=== PATIENT | male | born 1965 | race Caucasian/White ===

== ENCOUNTER → 2017-01-25 | Outpatient (CLI) | payer BC ==
[~2017-01-25] VITALS: Ht 180.3 cm; Wt 93.3 kg
[2017-01-25 14:55] VITALS: BP 134/94; PULSE 96; Ht 180.3 cm; Wt 93.3 kg
== END | disposition home or self-care (01) ==
LOC: C.NEUR 14:16
PROVIDERS: ATTEND Internal Medicine Pulmonary Disease
DX: R06.83 Snoring (principal); R53.83 Other fatigue; G47.8 Other sleep disorders

== ENCOUNTER → 2017-01-31 | Outpatient (CLI) | payer BC ==
--- NOTE | 2017-02-01 05:06 | PAP/PSG TECHNICIAN REPORT ---
[facility] Applications Engineer Manufacturing Polysomnogram Report Study name: None Report date: 02/01/2017 Study date: 01/31/2017 Referring Physician: Khai Mcclain M.D. Name: LUZ MARCIAL Interpreting Physician: Khai Mcclain M.D. Date of : 1965 Applications Engineer Manufacturing: Luciana Reyes RPS. Sex: Male Age: 51 StudyType: PSG Weight: 205 lbs Height: 51 years, Height 5' 11" Neck Circum: 16 inches BMI: 28.59 Medications: Omeprazole 20 mg Patient History 51 yr. old male here for a diagnostic sleep study. Patient complains of never feeling rested, moves constantly in his sleep, loud snoring and witnessed apneas. ESS 12/09. Parameters Monitored NPSG: E1-M2, E2-M1, Fp1-M2, Fp2-M1, F3-M2, F4-M2, F4-M1, C3-M2, C4-M2, C4-M1, O1-M2, O2-M2, O2-M1, T3-M2, T4-M1, P3-M2, P4-M1, CHIN1, CHIN2, HR, EKG, Legs, PFLOW, SNOR, FLOW, CFLOW, Tidal Volume, THOR, ABDO, SpO2, PLTH, CPRESS, ETCO2 Wave, ETCO2, pH Sleep Architecture Sleep Stages Time at Lights Off 8:15:40 PM STAGES Time (min.) TST (%) Time at Lights On 4:58:10 AM Wake 67.0 -- Total Recording Time (TRT) 522.00 min. N1 46.0 10 Total Sleep Period (TSP) 507.5 min. N2 289.5 64 Total Sleep Time (TST) 455.0min. N3 17.0 4 Awake Time 67.0 min. REM 102.5 23 Wake after Sleep Onset 61.0 min. Sleep Efficiency (SE) 87 % Sleep Onset Latency (TRACEE) 6.5 min. Number of Stage 1 Shifts None Awakenings 34 Stage Changes 154 Number of REM periods 13 REM 102.5 23 REM Latency 111.5 min. NREM 352.5 77 Body Position Analysis Supine Right Left Side Prone Vertical Total Sleep Time (min.) 296.4 126.5 76.0 202.50 0.0 0.7 Total Sleep Time (%) 55% 28% 17% 45 0% N/A% Total Sleep Time REM (min.) 29.5 46.0 27.0 None 0.0 0.0 Total Sleep Time NREM (min.) 223.0 80.5 49.0 None 0.0 0.0 Intermittent Wake (min.) 43.9 21.1 1.2 None 0.0 0.7 Total Sleep Period (%) 57% None None None None None Arousals Myoclonus (PLM) * Events Count Index Events Count Index Spontaneous 12 2 Events Awake (PLMW) 49 43.9 Respiratory 18 2.8 Events Asleep w/ Arousal (PLMA) 11 1.5 PLM 11 1 Events Asleep w/o Arousal (PLMS) 61 8.0 Snoring 25 3 Total Asleep 72 9.5 Total 65 9 Total 121 14 Respiratory Analysis * CA OA MA CH H RERA Total Count 2 3 0 0 59 15 64 Index 0.3 0.4 0.0 0 7.8 2 10.4 Mean Duration 14.0 17.7 0.0 0.00 19.6 23.7 20.2 Longest Duration 16.4 20.7 0.0 0.00 0.0 31.9 50.1 Respiratory Event Summary Total Supine ~Supine Right Left Prone REM NREM Apneas Count 5 5 0 0 0 N/A 2 3 Index 0.7 1 0 0.0 0.0 N/A 1 1 Hypopneas (4% Desat) Count 59 51 8 8 0 N/A 5 54 Index 7.8 12.1 2 3.8 0.0 N/A 2.9 9.2 Apneas & All Hypopneas Count 64 56 8 8 0 N/A 7 57 Index 8.4 13 2 4 0 N/A 4.1 9.7 Respiratory Events (Big Data Admin+All Hyp+RERA) Count 64 68 11 11 0 N/A 7 57 Index 10.4 16 3 5.2 0.0 N/A 6.4 11.6 Respiratory Related Arousal Count 18 68 3 3 0 N/A 3 18 Index 2.8 4 1 1 0 N/A 2 3 Snoring Analysis Supine Right Left Prone REM NREM Total Snore duration 35.0 min Snores count 633 526 48 N/A 182 1,025 1,207 Snore mean duration 1.7 Sec Snores index 150 249 38 N/A 106.5 174.5 159.2 TST with snoring (%) 7.7% Desaturation Event Summary: Minimum %SpO2 Event Count Mean/Min/Max Duration(sec.) Desaturation Index % Time In Bed > 90 67 21.6 / 5.5 / 60.0 8.7 89.2 86 - 90 8 11.7 / 5.5 / 14.3 8.6 10.8 81 - 85 0 N/A 0.0 0.0 76 - 80 0 N/A 0.0 0.0 71 - 75 0 N/A 0.0 0.0 66 - 70 0 N/A 0.0 0.0 61 - 65 0 N/A 0.0 0.0 56 - 60 0 N/A 0.0 0.0 51 - 55 0 N/A 0.0 0.0 < 50 0 N/A 0.0 0.0 Total REM NREM Awake <50% 0.0 min. 0.0 min. 0.0 min. 0.0 min. 51 - 60% 0.0 min. 0.0 min. 0.0 min. 0.0 min. 61 - 70% 0.0 min. 0.0 min. 0.0 min. 0.0 min. 71 - 80% 0.0 min. 0.0 min. 0.0 min. 0.0 min. 81 - 90% 56.0 min. 0.8 min. 49.5 min. 5.7 min. 91 - 100% 462.6 min. 101.7 min. 303.0 min. 57.9 min. Average 93 94 92 93 Minimum SpO2 85 90 88 85 Desaturation Event Index 7.7 3.5 8.5 10.7 # Desat. Events below 89% 16 N/A 15 1 Time(%) with Saturation below 89% 0.3 0.0 0.2 0.1 Time(min.) with Saturation below 89% 1.5 0.0 1.2 0.3 Time (mins) REM (mins) NREM (mins) % of TST SpO2 Below 90% 35 2 N33 2.8 SpO2 Below 88% 4 0 0 0 Heart Rate Analysis Min (bpm) Max (bpm) Average (bpm) Awake 56 92 71 NREM 53 90 70 REM 48 87 65 Overall 48 90 69 Supplemental O2 Values Minimum O2 level: None Value Start Time End Time Applications Engineer Manufacturing Comments Mr. Marcial slept in the right, left, and supine positions. No cardiac arrhythmia. PLMs noted. No bruxism noted. Snoring was noted and scored as a 4 on a scale of 0 through 5. (0=no snoring, 5=snoring loud enough to be heard through a closed door or down the [address] way) Mr. Marcial did not wake to use the restroom during the night. Mr. Marcial stated, that was a normal night. The final report will be interpreted and signed by a sleep physician. The completed physician report will then be placed in the patient medical record. Therapy (cm H2O) 0 TIB (min.) 522.0 TST (min.) 455.0 Sleep Onset (min.) 6.5 REM Onset From Sleep (min.) 111.5 Sleep Efficiency % 87 Wakefulness (%) 13 Wakefulness (min.) 67.0 NREM 1 (%) 10 NREM 1 (min.) 46.0 NREM 2 (%) 64 NREM 2 (min.) 289.5 NREM 3 (%) 4 NREM 3 (min.) 17.0 REM (%) 23 REM (min.) 102.5 # Arousals 65 Arousal Index 9 # Snore 1,207 Snore Index 159.2 AHI 8.4 AHI Supine 13 AHI Non-Supine 2 NREM AHI 9.7 REM AHI 4.1 RDI 10.4 # Obstructive Apnea 3 # Central Apnea 2 # Mixed Apnea 0 # Hypopneas 59 RERAs 15 Total Respiratory Events 80 Time Below SpO2 89% (min.) 1.2 Mean NREM SpO2 (%) 92 Mean REM SpO2 (%) 94 Mean Sleep SpO2 (%) 93 Min NREM SpO2 (%) 88 Min REM SpO2 (%) 90 Position Supine (min.) 296.4 Position Non-supine (min.) 202.5 LM Index Sleep 9.5 LM Index NREM 7.0 LM Index REM 18.1 Mean Heart Rate (bpm) 69 Min Heart Rate (bpm) 48
--- NOTE | 2017-02-04 16:10 | POLYSOMNOGRAPH REPORT ---
CLINICAL DATA: A 51-year-old male with BMI of 28.6 referred by myself and Dr. éCsar Zhao for evaluation of possible sleep apnea. He has loud snoring, daytime fatigue, witnessed apneas, and frequent movements in bed. SLEEP ARCHITECTURE: Total sleep period was 507.5 minutes. Total sleep time was 455 minutes divided between 352.5 minutes of non-REM sleep and 102.5 minutes of REM sleep. Sleep onset latency was 6.5 minutes. REM latency was 111.5 minutes. Sleep efficiency was 87%. Wake after sleep onset was 61 minutes. Sleep consisted of stage N1 10%, stage N2 64%, stage N3 4%, and REM 23%. AROUSAL DATA: A 65 arousals recorded for an index of 9 per hour. PLM DATA: 72 limb movements during sleep were noted for an index of 9.5 per hour with arousal index of 1.5 per hour. RESPIRATORY DATA: Mild sleep apnea was documented. The AHI was 8.4. There were 2 central and 3 obstructive apneic episodes. The longest duration of apnea was 28.7 seconds. There were 59 hypopneic episodes with a mean duration of 19.6 seconds. The RDI was 10.4. There were 15 RERAs. the longest RERA was 31.9 seconds. OXIMETRY DATA: Very mild nocturnal hypoxemia was seen. Oxygen arnoldo was 88%. Mean saturation was 93%. EKG: Heart rates ranged from 53-90 beats per minute. No arrhythmias were noted. DOOR MANAGER'S COMMENTS: The patient slept in the right, left, and supine positions. Snoring was severe, rated 4 on a scale of 1-5. IMPRESSION: Mild sleep apnea/hypopnea with an AHI of 8.4 and an RDI of 10.4. RECOMMENDATIONS: The patient would benefit from use of an oral appliance, use of auto CPAP, or a repeat sleep study with CPAP. Clinical correlation is needed. JAMEL
== END | disposition home or self-care (01) ==
LOC: C.NEUR 20:00
PROVIDERS: ATTEND Internal Medicine Pulmonary Disease
DX: G47.30 Sleep apnea, unspecified (principal)

== ENCOUNTER → 2017-05-10 | Outpatient (CLI) | payer OTHER ==
[~2017-05-10] VITALS: Ht 180.3 cm; Wt 95.3 kg
[2017-05-10 12:40] VITALS: BP 133/88; PULSE 94; Ht 180.3 cm; Wt 95.3 kg
== END | disposition home or self-care (01) ==
LOC: C.NEUR 12:20
PROVIDERS: ATTEND Physician Assistant Medical
DX: G47.30 Sleep apnea, unspecified (principal); R68.2 Dry mouth, unspecified

== ENCOUNTER 2021-01-12 11:21 | Observation (INO) ==
[2021-01-12] MEDS ORDERED: HYDROmorphone INJ 1 MG/ML SYRINGE IM ONE (13:13)
[2021-01-12] MEDS ORDERED: dexAMETHasone**PF** 10 MG/ML VIAL IM ONE (13:15)
--- NOTE | 2021-01-12 13:49 | Emergency Department Note ---
History of Present Illness General Chief complaint: Back Injury/Pain Stated complaint: SEVERE BACK PAIN History of Present Illness Maximum Pain Intensity: 10 Feroz Marcial is a 55 year old male with history including but not limited to HTN, DLD, GERD, sleep apnea, and chronic lumbar back pain s/p previous injections who presents to the Emergency Department for evaluation of severe ceasar n to his lower back radiating down his right buttock, into his right groin and anterolateral right leg which has become worse over the past 11 days. At the time of onset, the patient states that he was carrying something heavy when he "tweaked" his back, he suddenly developed the severe pain which brought him to his knees. He attempted to visit his chiropractor x 2 for an adjustment without relief. He then visited his PCP and had a lumbar X-ray and MRI L spine on 01/08/21 which showed mild multilevel degenerative changes of the lumbar spine, most significant for a right foraminal disc protrusion at L1-2 resulting in mild right foraminal stenosis. The patient states that he did complete a 5 day course of prednisone and has also been taking Tramadol and Baclofen as prescribed by his PCP without relief of his symptoms. He states that he has now developed even worsening pain and now has numbness to his right groin radiating down his anterolateral leg into his toes. He also states that he has been having difficulty starting his stream of urine, but once he starts to urinate he is unable to control it. He denies loss of continence of his bowel and has continued to have regular bowel movements. Currently, the patient rates his pain as a 10/10 and is unable to find a comfortable position secondary to his pain. His symptoms become much worse when he bears weight on his right leg and has been having difficulty ambulating due to this. He denies specific weakness to his right leg or other extremities and denies suffering any falls. He also denies recent fevers/chills, lightheadedness, dizziness, chest pain, cough, shortness of breath, abdominal pain, nausea, vomiting, diarrhea, increased urgency of urination or dysuria. The patient is requesting a consult with Dr. Messer of Orthopedic Spine surgery and is also requesting admission to the hospital due to his intractable back pain with associated neurological symptoms until he is able to be seen by Spine. Home Medications Medication Instructions Recorded Confirmed Type omeprazole 20 mg tablet,delayed 20 mg PO DAILY 12/06/18 09/27/21 History release cetirizine 10 mg tablet (Zyrtec) 10 mg PO QAM PRN 09/05/19 01/12/21 History baclofen 20 mg tablet 20 mg PO BID PRN 01/12/21 01/12/21 History Allergies Allergy/AdvReac Type Severity Reaction Status Date / Time codeine AdvReac Unknown gi upsets Verified 09/13/19 12:49 morphine AdvReac Unknown gi upsets Verified 09/13/19 12:49 Ookiiyl-Cpj-Mvc Reductase AdvReac Unknown Muscle Pain Verified 09/13/19 12:49 Inhibitor Past Med/Surg History Medical History Terrazas esophagus Chronic back pain LUMBAR GERD (gastroesophageal reflux disease) High cholesterol Hypertension Rectal bleeding OCCASIONALLY> REASON FOR PROCEDURE Sleep apnea CPAP Surgical History History of esophagogastroduodenoscopy (EGD) Hx of arthroscopic knee surgery MULTIPLE BILAT Hx of hand surgery INDEX FINGER> LEFT HAND Hx of hernia repair X2> INGUINAL Hx of shoulder surgery LEFT Hx of toe surgery LEFT FOOT Hx of vasectomy Family History Father Hypertension Social History (Updated 01/12/21 @ 15:54 by RE De) Smoking Status: Never smoker Tobacco Type: Smokeless Tobacco (Dip or Chew) Second Hand Exposure: No; Do You Dip or Chew Tobacco: Yes; Tobacco Cessation Education Requested by Patient: No Hx Alcohol Use: Yes Alcohol type: beer and hard liquor Hx Substance Use: No Preferred Language: Luxembourgish Communication Ability: Effective Automatic Winder Operator Required: No Beliefs That Will Affect Care: None Current Living Situation: Spouse Other Information That Helps Us Care for You: No Feels Safe at Home: Yes Safety Concerns: Feels Safe At This Time Assistive Devices: Walker Review of Systems A total of 10 systems reviewed and were otherwise negative Physical Exam Vital Signs Vital Signs - 24 hr 01/12/21 12:21 Temperature 36.7 C Temperature Source Temporal Artery Scan Pulse Rate 83 Respiratory Rate 16 Blood Pressure 126/65 Blood Pressure Mean 85 Pulse Oximetry 98 Sepsis Recent Fever Within 48 Hours No Sepsis New/Unexplained Change in Mental Status No Sepsis Action Taken by Nursing No Action Required General: The patient is well-developed, well-nourished, writhing around in bed, holding his right lower back HEENT: Face and ears are flushed, scalp is normocephalic/atraumatic, PERRL, EOMI, mucous membranes moist, oropharynx clear Neck: Trachea midline, no meningismus, no mid-line cervical tenderness Resp: Good inspiratory effort on room air, lung sounds clear bilaterally CV: Regular rate and rhythm, peripheral pulses palpated Back: No midline tenderness to the thoracic spine, tender to palpation over the lumbar spine radiating to the right lower back and buttocks, no obvious step- offs or deformities : Perceived numbness to the right groin, no penile or scrotal pain Abd: Soft, non-distended, non-tender to palpation without rebound, guarding or rigidity, no peritoneal signs MSK: No obvious long bone deformities. Pain and perceived numbness radiating down the right anterior and lateral thigh but non-tender to palpation. Full range of motion of the RLE without pain or difficulty, strength 5/5, d/p pulse and sensation to light/deep palpation intact on exam. Moving BUE and LLE without apparent pain or difficulty with strength 5/5 throughout these extremities as well. Neuro: Awake, alert and oriented x 3, interacting and answering questions appropriately Course Administered Medications Hydromorphone HCl (Hydromorphone Inj 0.5 Mg/0.5 Ml Syr) 0.5 mg IV Q6H PRN PRN Reason: Pain Stop: 01/26/21 16:46 Last Admin: 01/12/21 17:21 Dose: 0.5 mg Documented by: [id number] Oxycodone HCl (Oxycodone Hcl Ir 5 Mg Tab (Immediate Release)) 5 mg PO Q6H PRN PRN Reason: Pain Stop: 01/26/21 16:46 Last Admin: 01/12/21 19:33 Dose: 5 mg Documented by: [id number] Discontinued Medications Dexamethasone Sodium Phosphate (DexamethasonePf 10 Mg/Ml Vial) 10 mg IM NOW ONE Stop: 01/12/21 13:16 Last Admin: 01/12/21 13:22 Dose: 10 mg Documented by: [id number] Hydromorphone HCl (Hydromorphone Inj 1 Mg/Ml Syringe) 1 mg IM ONCE ONE Stop: 01/12/21 13:14 Last Admin: 01/12/21 13:22 Dose: 1 mg Documented by: [id number] Ondansetron HCl (Ondansetron Inj 2 Mg/Ml 2 Ml Vial) 4 mg IV ONE ONE Stop: 01/12/21 15:06 Last Admin: 01/12/21 15:20 Dose: 4 mg Documented by: [id number] Oxycodone HCl (Oxycodone Hcl Ir 5 Mg Tab (Immediate Release)) 5 mg PO ONE ONE Stop: 01/12/21 15:06 Last Admin: 01/12/21 15:20 Dose: 5 mg Documented by: [id number] Medical Decision Making Differential Diagnosis Differential considered includes cauda equina syndrome, conus medullaris, spinal cord compression syndrome, peripheral nerve compression, fractures or subluxations, intra-abdominal pathology such as abdominal aortic aneurysm or ki dney stones, muscle strain, transverse myelitis, spinal cord injury. Laboratory Data Result diagrams: 01/12/21 14:28 01/12/21 14:28 Lab Results 01/12/21 01/12/21 Range/Units 14:05 14:05 COVID-19 Eval Order Covid19 at [facility] SARS-CoV-2 (PCR) NEGATIVE (Negative) MDM Narrative Physical exam and history were performed. Nursing notes, EMR, and medication list were personally reviewed. Patient presents to the emergency department for evaluation of severe pain to his lower back radiating into his right buttocks, groin and right anterolateral thigh which has been worsening since he "tweaked" it while carrying something heavy 11 days prior to arrival. He has also since developed numbness in his right groin radiating down his right leg to his toes and also states that he has been having difficulty starting his flow of urine with loss of control of the stream once he starts to urinate. After the initial injury, the patient saw his chiropractor for an adjustment but did not have relief after the procedure. He is also followed up with his PCP and had x-rays of his lumbar spine as well as an MRI last week which showed right foraminal disc protrusion at L1-L2 resulting in mild foraminal stenosis. He completed a 5-day course of prednisone and has been taking tramadol and baclofen without relief of his symptoms. Due to his worsening pain and development of numbness/urinary symptoms as stated he presented to the emergency department for further evaluation today. I discussed with the patient and his at bedside that the findings of right foraminal disc protrusion at L1-L2 resulting in mild foraminal stenosis on the MRI of his L-spine are consistent with his symptoms today and he denies suffering additional injuries or falls since that time. I do not feel any additional imaging is necessary at this time. It seems that he has failed outpatient management after completing a 5-day course of steroids and taking pain medicine and muscle relaxants without any relief. The patient stated that he could not go through another night in severe pain as he did last night and is requesting consultation with Dr. Messer of orthopedic spine. IV access was established and the patient was given Dilaudid 1 mg and Decadron 10 mg which she did state how to take the edge off of his severe pain. CBC and BMP were also obtained and were reviewed by me. He has mild leukocytosis at 12.07, no other significant findings. I did attempt to call Dr. Messer as the patient requested, however he was not on-call today and did not answer the phone. I offered to consult the [facility] spine surgeon, however the patient stated that he only wanted to see Dr. Messer. In the meantime, he and his were requesting admission to the hospital for continued pain control due to his fa iled outpatient treatment. Ana Lance PA-C of the [facility] team was contacted and agreed to evaluate the patient for likely observation. This was also discussed with my attending, Dr. Joel. The patient and his verbalized their understanding and agreement with this treatment plan. The chart was completed utilizing [employer] Speech Voice Recognition Software. Grammatical errors, random word insertions, pronoun errors, and incomplete sentences are an occasional consequence of this system due to software limitations, ambient noise, and hardware issues. Any formal questions or concerns about the content, text, or information contained within the body of this dictation should be directly addressed to the provider for clarification. Impression & Plan Intractable back pain, Foraminal stenosis of lumbar region, Protrusion of intervertebral disc Discharge Plan Visit Data Chief Complaint: Back Injury/Pain Stated Complaint: SEVERE BACK PAIN ED Provider: Hussein Joel ED Midlevel Provider: Natalee Wells Discharge Problem: Intractable back pain, Foraminal stenosis of lumbar region, Protrusion of intervertebral disc Patient Disposition: Admitted As Inpatient Discharge Instructions Interventions: ED Discharge Assessment Last Done: 01/12/21 16:31
[2021-01-12 14:35] LABS: Basophils # (auto) 0.02 K/uL (0-0.2); Basophils % (auto) 0.2 %; Eosinophils # (auto) 0.16 K/uL (0-0.5); Eosinophils % (auto) 1.3 %; Hematocrit (blood only) 46.7 % (42-52); Hemoglobin 16.7 g/dL (14.0-18.0); Immature Granulocytes # (auto) 0.05 K/uL (0.00-0.02); Immature Granulocytes % (auto) 0.4 %; Lymphocytes # (auto) 1.85 K/uL (1.2-3.4); Lymphocytes % (auto) 15.3 %; Mean Corpuscular Hemoglobin 30.9 pg (25-34); Mean Corpuscular Hgb Conc 35.8 g/dL (32-36); Mean Corpuscular Volume 86.3 fL (80-100); Mean Platelet Volume 10.5 fL (7.4-10.4); Monocytes # (auto) 0.93 K/uL (0.11-0.59); Monocytes % (auto) 7.7 %; Neutrophils # (auto) 9.06 K/uL (1.4-6.5); Neutrophils % (auto) 75.1 %; Platelet Count 220 K/uL (130-400); RDW Coefficient of Variation 12.9 % (11.5-14.5); RDW Standard Deviation 40.7 fL (36.4-46.3); Red Blood Count 5.41 M/uL (4.7-6.1); White Blood Count 12.07 K/uL (4.8-10.8)
[2021-01-12 14:55] LABS: Albumin Level 3.4 gm/dl (3.4-5.0); BUN Creatinine Ratio 17.8 (10-20); Calcium 8.7 mg/dl (8.5-10.1); Est GFR (African American) 86.5 ml/min; Est GFR (Non-African American) 74.6 ml/min; Potassium 3.7 mmol/L (3.5-5.1)
[2021-01-12 14:58] LABS: Bilirubin,Total 0.4 mg/dl (0.2-1); Globulin 3.3 gm/dl (2.5-4.0); Total Protein 6.7 gm/dl (6.4-8.2)
[2021-01-12] MEDS ORDERED: oxyCODONE HCL IR 5 MG TAB (IMMEDIATE RELEASE) PO ONE (15:05)
[2021-01-12] MEDS ORDERED: ONDANSETRON INJ 2 MG/ML 2 ML VIAL IV ONE (15:05)
--- NOTE | 2021-01-12 15:58 | History & Physical Report ---
Date of Service January 12, 2021 Assessment & Plan (1) Protrusion of lumbar intervertebral disc: (2) Intractable back pain: Plan: -Admit to [facility] -Patient presenting from home with reports of worsening back pain, RLE numbness and weakness x 11 days -Outpatient MRI showed right foraminal disc protrusion L1-L2 resulting in mild right foraminal stenosis -Patient completed a course of prednisone and tramadol as an outpatient without relief -In the ED, patient received IV Dilaudid and IV Decadron with improvement in symptoms however is reluctant to go home -Spine Ortho consult, case discussed with Dr. Messer -Continue conservative management with IV steroids (additional Decadron 10 mg to be given tomorrow morning per Dr. Messer), pain control with oxycodone and Dilaudid for breakthrough pain -N.p.o. after midnight for possible procedure tomorrow (3) Terrazas esophagus: Plan: -Continue PPI (4) Sleep apnea: Plan: -CPAP as per home settings (5) DVT prophylaxis: Plan: -SCDs History of Present Illness Chief Complaint: Back pain Primary Care Provider: César Zhao MD 55-year-old male with PMH DEBBIE on CPAP, Terrazas's esophagus, and other problems listed below who presents the ED for evaluation of intractable back pain. Patient reports that 11 days ago, he developed a low right-sided back pain. He reports the pain came on suddenly while walking. Pain has been progressively getting worse. Pain is located in the right lower back and radiates into the right buttock. Patient also has associated numbness extending into the right anterior thigh and down the lateral aspect of the right leg to the toes. Reports that right leg feels weak when he is walking. He denies urinary incontinence and retention however notes that urine stream is decreased. Denies bowel dysfunction. As an outpatient, was seen by his PCP and MRI was ordered that showed a right foraminal disc protrusion L1-L2. He completed course of prednisone without any improvement in his symptoms. He was also taking tramadol and baclofen without relief. Patient denies fevers and chills. No chest pain or shortness of breath. Denies abdominal pain, nausea, vomiting, diarrhea. No dysuria or hematuria. In the ED, patient received IV dexamethasone 10 mg and IV Dilaudid 1 mg. Pain is improved however patient is reluctant to go home. Patient is hemodynamic stable. Labs are unremarkable. Allergies Allergy/AdvReac Type Severity Reaction Status Date / Time codeine AdvReac Unknown gi upsets Verified 09/13/19 12:49 morphine AdvReac Unknown gi upsets Verified 09/13/19 12:49 [id number] Reductase AdvReac Unknown Muscle Pain Verified 09/13/19 12:49 Inhibitor Home Medications Medication Instructions Recorded Confirmed Type omeprazole 20 mg tablet,delayed 20 mg PO DAILY 03/23/18 01/12/21 History release cetirizine 10 mg tablet (Zyrtec) 10 mg PO QAM PRN 09/05/19 01/12/21 History baclofen 20 mg tablet 20 mg PO BID PRN 01/12/21 01/12/21 History oxycodone 5 mg tablet 5 mg PO Q6H PRN #20 tab 01/14/21 Rx tramadol 50 mg tablet 50 mg PO Q6H PRN #20 tab 01/14/21 Rx Past Med/Surg History Medical History Terrazas esophagus Chronic back pain LUMBAR GERD (gastroesophageal reflux disease) High cholesterol Hypertension Rectal bleeding OCCASIONALLY> REASON FOR PROCEDURE Sleep apnea CPAP Surgical History History of esophagogastroduodenoscopy (EGD) Hx of arthroscopic knee surgery MULTIPLE BILAT Hx of hand surgery INDEX FINGER> LEFT HAND Hx of hernia repair X2> INGUINAL Hx of shoulder surgery LEFT Hx of toe surgery LEFT FOOT Hx of vasectomy Family History Father Hypertension Social History (Updated 01/12/21 @ 15:54 by RE De) Smoking Status: Never smoker Tobacco Type: Smokeless Tobacco (Dip or Chew) Second Hand Exposure: No; Do You Dip or Chew Tobacco: Yes; Tobacco Cessation Education Requested by Patient: No Hx Alcohol Use: Yes Alcohol type: beer and hard liquor Hx Substance Use: No Preferred Language: Kiswahili Communication Ability: Effective 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 Beliefs That Will Affect Care: None marital status: Current Living Situation: Spouse Other Information That Helps Us Care for You: No Feels Safe at Home: Yes Safety Concerns: Feels Safe At This Time Assistive Devices: Walker Review of Systems Review of Systems: ROS per HPI, all other systems reviewed and negative Physical Exam Constitutional: WD/WN, vitals as above Eyes: PERRL, conjunctivae normal, anicteric sclerae ENMT: external ear and nose normal, oropharynx normal Respiratory: normal respiratory effort, lungs clear to auscultation Cardiovascular: Rate/Rhythm: regular rate and regular rhythm Vessels: normal peripheral pulses Extremities: no edema Gastrointestinal (Abdomen): normal bowel sounds, soft, nontender, no hepatosplenomegaly Musculoskeletal: no cyanosis or clubbing, extremities motor strength 5/5 Right-sided lumbar paraspinal tenderness Skin: no rashes, warm and dry Neurologic: PERRL, EOMI, accommodation nl, no face palsy, no dysarthria Psychiatric: A+Ox3, euthymic affect Results & Data Results & Data ([facility]) Vital Signs (Past 12 Hours) Vital Signs Temp Pulse Pulse Resp BP BP Pulse Ox 01/12/21 14:24 69 18 138/86 99 01/12/21 12:21 36.7 C 83 16 126/65 98 Laboratory Results Short CBC 01/12/21 Range/Units 14:28 WBC 12.07 H (4.8-10.8) K/uL Hgb 16.7 (14.0-18.0) g/dL Hct 46.7 (42-52) % Plt Count 220 (130-400) K/uL BMP 01/12/21 14:28 Sodium 136 Potassium 3.7 Chloride 105 Carbon Dioxide 23 BUN 20 H Creatinine 1.12 Glucose 114 H Calcium 8.7 Liver Function 01/12/21 Range/Units 14:28 Total Bilirubin 0.4 (0.2-1) mg/dl AST 22 (15-37) U/L ALT 73 (12-78) U/L Alkaline Phosphatase 96 (45-117) U/L Albumin 3.4 (3.4-5.0) gm/dl Code Status & VTE Plan VTE Prophylaxis Plan VTE Prophylaxis will be ordered: Yes Supervising Physician Co-Signing Physician Notes Pt was seen and examined. Agreed with Rosi GRIMALDO exam, assessment and plan. 55-year-old male with PMH DEBBIE on CPAP, Terrazas's esophagus presents the ED for evaluation of intractable back pain. Pt said that he has been having low right- sided back pain for about 11 days. He said that pain worsening with walking. Denies any bladder and bowel loss. Outpatient MRI was ordered that showed a right foraminal disc protrusion L1-L2. He completed course of prednisone without any improvement in his symptoms. in the ED, patient received IV dexamethasone 10 mg and IV Dilaudid 1 mg with provided some relief. Will continue pain control and decadron. Will consult ortho. Fall precaution. Will make NPO after midnight. Will continue monitor closely. MD Linda
[2021-01-12] MEDS ORDERED: ONDANSETRON INJ 2 MG/ML 2 ML VIAL IV PRN (16:47)
[2021-01-12] MEDS ORDERED: ACETAMINOPHEN 325 MG TAB PO PRN (16:47)
[2021-01-12] MEDS: HYDROmorphone INJ 0.5 MG/0.5 ML SYR IV PRN (17:21)
[2021-01-12] MEDS: oxyCODONE HCL IR 5 MG TAB (IMMEDIATE RELEASE) PO PRN (19:33)
[2021-01-13] MEDS: HYDROmorphone INJ 0.5 MG/0.5 ML SYR IV PRN ×2 (00:50→09:35)
[2021-01-13] MEDS: oxyCODONE HCL IR 5 MG TAB (IMMEDIATE RELEASE) PO PRN (05:54)
[2021-01-13 07:02] LABS: BUN Creatinine Ratio 18.7 (10-20); Est GFR (African American) 80.3 ml/min; Est GFR (Non-African American) 69.3 ml/min; Potassium 4.5 mmol/L (3.5-5.1)
[2021-01-13 07:08] LABS: Hematocrit (blood only) 50.2 % (42-52); Mean Corpuscular Hemoglobin 30.7 pg (25-34); Mean Corpuscular Hgb Conc 33.9 g/dL (32-36); Mean Corpuscular Volume 90.8 fL (80-100); Mean Platelet Volume 10.7 fL (7.4-10.4); Platelet Count 253 K/uL (130-400); RDW Coefficient of Variation 13.2 % (11.5-14.5); RDW Standard Deviation 43.8 fL (36.4-46.3); Red Blood Count 5.53 M/uL (4.7-6.1); White Blood Count 14.37 K/uL (4.8-10.8)
--- NOTE | 2021-01-13 07:58 | Orthopedic Consultation ---
Date of Consultation January 13, 2021 Assessment & Plan (1) Protrusion of intervertebral disc: Assessment Far lateral disc herniation L1-L2 on the right. Plan at this time in light of his progressive neurologic deficit, severe pain and inability to ambulate and recommending emergent far lateral discectomy L1-L2 on the right. Risk benefits pros cons and alternatives were outlined in detail. History of Present Illness Reason for Consultation: Severe right leg pain with weakness and numbness Attending Physician: Brandyn Mckeon MD History of Present Illness This is a 55-year-old male who presents with sudden onset of right flank pain rating into the right groin and anterior thigh right thigh. He denies any specific trauma fall or event. Is been incapacity in nature. Is undergone prior care provider a course of oral steroids and various medications without resolution. He presents to the emergency room yesterday secondary to severe unremitting pain. He does affect his ability to ambulate secondary to weakness. Is been unable to sleep secondary to pain. He has not been able to work. Left lower extremity is asymptomatic. Allergies Allergy/AdvReac Type Severity Reaction Status Date / Time codeine AdvReac Unknown gi upsets Verified 09/13/19 12:49 morphine AdvReac Unknown gi upsets Verified 09/13/19 12:49 [id number]-[id number]-Voo Reductase AdvReac Unknown Muscle Pain Verified 09/13/19 12:49 Inhibitor Home Medications Medication Instructions Recorded Confirmed Type omeprazole 20 mg tablet,delayed 20 mg PO DAILY 03/23/18 01/12/21 History release cetirizine 10 mg tablet (Zyrtec) 10 mg PO QAM PRN 09/05/19 01/12/21 History baclofen 20 mg tablet 20 mg PO BID PRN 01/12/21 01/12/21 History Patient History Medical History Terrazas esophagus Chronic back pain LUMBAR GERD (gastroesophageal reflux disease) High cholesterol Hypertension Rectal bleeding OCCASIONALLY> REASON FOR PROCEDURE Sleep apnea CPAP Surgical History History of esophagogastroduodenoscopy (EGD) Hx of arthroscopic knee surgery MULTIPLE BILAT Hx of hand surgery INDEX FINGER> LEFT HAND Hx of hernia repair X2> INGUINAL Hx of shoulder surgery LEFT Hx of toe surgery LEFT FOOT Hx of vasectomy Family History Father Hypertension Social History (Updated 01/12/21 @ 15:54 by RE De) Smoking Status: Never smoker Tobacco Type: Smokeless Tobacco (Dip or Chew) Second Hand Exposure: No; Do You Dip or Chew Tobacco: Yes; Tobacco Cessation Education Requested by Patient: No Hx Alcohol Use: Yes Alcohol type: beer and hard liquor Hx Substance Use: No Preferred Language: Serbian Communication Ability: Effective 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 He does exhibits a 4-/5 right hip flexor and a 3+/5 right quadricep compared to 5/5 on the left. He is a 5/5 bilaterally plantar flexion dorsiflexion extensor pollicis longus. There is marked sensory deficits to cold and light touch to the right anterior thigh and groin compared to the left. Deep tendon reflexes are diminished. Results & Data ([facility]) Vital Signs (Past 12 Hours) Vital Signs Temp Pulse Pulse Resp BP Pulse Ox 01/13/21 02:50 70 12 92 01/12/21 22:47 36.7 C 72 16 156/88 H 92 01/12/21 22:33 72 26 H 97
--- NOTE | 2021-01-13 08:15 | Anesthesiology Consultation ---
Date of Service January 13, 2021 Assessment & Plan (1) Encounter for pre-operative examination: Chart Review Chart Review: medical data entry clerk initiated History Surgery Operation Date: 01/13/21 07:00 Proposed Procedures p Right Far Lateral L1-L2 Discectomy - Grant Messer DO Height/Weight Height: 5 ft 11 in Weight: 101.3 kg Allergies Allergy/AdvReac Type Severity Reaction Status Date / Time codeine AdvReac Unknown gi upsets Verified 09/13/19 12:49 morphine AdvReac Unknown gi upsets Verified 09/13/19 12:49 [id number]-[id number] Reductase AdvReac Unknown Muscle Pain Verified 09/13/19 12:49 Inhibitor Medications Home Medications Medication Instructions Recorded Confirmed Last Taken omeprazole 20 mg tablet,delayed 20 mg PO DAILY 03/23/18 01/12/21 09/11/19 release cetirizine 10 mg tablet (Zyrtec) 10 mg PO QAM PRN 09/05/19 01/12/21 09/12/19 baclofen 20 mg tablet 20 mg PO BID PRN 01/12/21 01/12/21 Unknown Active Medications Generic Name Dose Route Start Last Admin Trade Name Freq PRN Reason Stop Dose Admin Hydromorphone HCl 0.5 mg 01/12/21 16:47 01/13/21 00:50 Hydromorphone Inj 0.5 Mg/0.5 Ml Syr IV 01/26/21 16:46 0.5 mg Q6H PRN Administration Pain Oxycodone HCl 5 mg 01/12/21 16:47 01/13/21 05:54 Oxycodone Hcl Ir 5 Mg Tab (Immediate Release) PO 01/26/21 16:46 5 mg Q6H PRN Administration Pain Past Medical History Medical History Terrazas esophagus Chronic back pain LUMBAR GERD (gastroesophageal reflux disease) High cholesterol Hypertension Rectal bleeding OCCASIONALLY> REASON FOR PROCEDURE Sleep apnea CPAP Past Family History Family History Father Hypertension Past Surgical History Surgical History History of esophagogastroduodenoscopy (EGD) Hx of arthroscopic knee surgery MULTIPLE BILAT Hx of hand surgery INDEX FINGER> LEFT HAND Hx of hernia repair X2> INGUINAL Hx of shoulder surgery LEFT Hx of toe surgery LEFT FOOT Hx of vasectomy Social History Smoking Status: Never smoker tobacco type: smokeless tobacco Do You Dip or Chew Tobacco: Yes Hx Alcohol Use: Yes Alcohol type: beer and hard liquor alcohol intake frequency: a few times a week Hx Substance Use: No substance use type: does not use Physical Exam Vital Signs Last Vital Signs Temp 97.9 F 01/13/21 08:02 Pulse 57 L 01/13/21 08:02 Resp 18 01/13/21 08:02 BP 146/78 H 01/13/21 08:02 Pulse Ox 97 01/13/21 08:02 Testing Laboratory Results 01/13/21 05:34 01/13/21 05:34 Laboratory Tests 01/12/21 14:05 SARS-CoV-2 (PCR) NEGATIVE
[2021-01-13] MEDS ORDERED: dexAMETHasone 10 MG in SYRINGE 0 ML IV SCH (09:00)
[2021-01-13] MEDS: PANTOprazole 40 MG TAB PO SCH (12:34)
[2021-01-13] MEDS ORDERED: MIDAZOLAM HCL 1 MG/ML 2ML VIAL ONE (13:18)
[2021-01-13] MEDS ORDERED: fentaNYL citrate 100 MCG/2 ML VIAL ONE (13:18)
[2021-01-13] MEDS ORDERED: ONDANSETRON INJ 2 MG/ML 2 ML VIAL IV PRN ×2 (13:34→17:21)
[2021-01-13] MEDS ORDERED: GLYCOPYRROLATE 0.2 MG/ML VIAL ONE (13:34)
[2021-01-13] MEDS ORDERED: PROPOFOL IV EMULSION 10 MG/ML 20 ML VIAL IV ONE (13:34)
[2021-01-13] MEDS ORDERED: ePHEDrine sulfate 50 MG/ML AMP IV PRN (13:34)
[2021-01-13] MEDS ORDERED: LIDOCAINE 2% 2 ML VIAL/AMP(20MG/ML) INFIL ONE (13:34)
[2021-01-13] MEDS ORDERED: LARYING-O-JET KIT (LTA) ONE (13:34)
[2021-01-13] MEDS ORDERED: ATROPINE SULFATE 0.1 MG/ML 10ML SYR IV PRN (13:34)
[2021-01-13] MEDS ORDERED: ROCURONIUM BROMIDE 10 MG/ML 5 ML VIAL IV ONE (13:34)
[2021-01-13] MEDS ORDERED: HYDROmorphone INJ 1 MG/ML SYRINGE IV PRN (13:34)
[2021-01-13] MEDS ORDERED: EPINEPHrine INJ 1 MG/ML AMP ONE (13:48)
[2021-01-13] MEDS ORDERED: BUPIVACAINE 0.5 % 5 MG/1 ML MPF 30ML VIAL ONE (13:48)
--- NOTE | 2021-01-13 13:57 | History & Physical Bridge Note ---
Date of Service January 13, 2021 History & Physical Bridge Note I have examined the patient, reviewed the History & Physical and in the interval since the performance of the History & Physical I have noted the following changes of clinical significance: no changes noted L1-L2 far lateral discectomy on the right
[2021-01-13] MEDS ORDERED: ceFAZolin 2,000 MG/15 ML IV PUSH IV ONE (14:02)
[2021-01-13] MEDS ORDERED: HYDROmorphone INJ 2 MG/ML SYR/VIAL ONE (14:29)
[2021-01-13] MEDS ORDERED: ceFAZolin 2000MG 2,000 MG/15 ML SYR IV ONE (14:30)
[2021-01-13] MEDS ORDERED: FLOSEAL HEMOSTATIC MATRIX 10ML TOP ONE (14:54)
[2021-01-13] MEDS ORDERED: PHENYLEPHRINE 100MCG/ML 5ML SYR ONE (14:56)
[2021-01-13] MEDS ORDERED: ePHEDrine sulfate 50 MG/ML SYR ONE (14:56)
[2021-01-13] MEDS ORDERED: LABETALOL HCL IV 5 MG/ML 20ML IV ONE (15:08)
--- NOTE | 2021-01-13 15:35 | Operative Report ---
Post Operative Report Pre & Post Diagnosis Operation Date: 01/13/21 07:00 Pre-Op Diagnosis: Protrusion of right far lateral L1-L2 intervertebral disc Post-Op Diagnosis: Protrusion of right far lateral L1-L2 intervertebral disc I identified the patient and participated in the time-out.: Yes Procedure Operation Date: 01/13/21 07:00 Actual Procedures p Right Far Lateral L1-L2 Discectomy(Right) - Grant Messer DO Surgeon Grant Messer DO Laundry Room Attendant Marylu Abel Estimated Blood Loss 15 Findings Consistent with Post-Op Diagnosis Specimens None Indications This is a 55-year-old male presents with marked clinical status and severe pain with weakness to the right lower extremity is here for the above-mentioned procedure. Description of Procedure Patient met with identified informed consent obtained. Patient was then taken to the operative suite underwent a patient placed in a prone position the Bryce table on top of the Daniel frame. All bony prominences well-padded eyes inspected to ensure no external pressure placed upon them. This time the lumbar spine was prepped and draped in a sterile fashion. The assistance of fluoroscopy identified the L1-L2 disc base and incision was made just off the midline along the right large enough to pass the Nodalitytronic dilators. The dilators were then placed sequentially retractor inserted was able to expose the L1 pars and intertransverse ligament on the right at L1-L2. Then excised a portion of the intertransverse ligament to expose the exiting L1 nerve root. Was able to explore underneath the nerve root and identified several large fragments of free disc material compressing on the root and dorsal root ganglion. After the fragments were removed there was explored several times to ensure all fragments addressed. Was then copiously irrigated and closed with 2 Vicryl in a fashion of 4 Monocryl for final skin closure. Steri-Strip Steri- Strips placed. Patient awakened taken to PACU in stable condition. Please note Marylu Abel was present at the entire procedure and all the patient positioning complex portions of the surgery and final skin closure. I attest to the content of the Intraoperative Record and any orders documented therein. Any exceptions are noted below.
--- NOTE | 2021-01-13 15:37 | Fluoroscopy Report ---
INTRAOPERATIVE RADIOGRAPH CLINICAL HISTORY: L1-L2 microdiscectomy. Fluoroscopy time: 28 seconds. FINDINGS: A single spot fluoroscopic view of the spine is presented. A surgical probe projects just p osterior to a disc space, reportedly at L1-L2. IMPRESSION: Intraoperative lumbar spine radiograph is above. Electronically signed by: Troy Ferro M.D. 01/13/2021 3:35 PM
[2021-01-13] MEDS: fentaNYL citrate 100 MCG/2 ML VIAL IV PRN ×4 (16:00→16:15)
--- NOTE | 2021-01-13 16:36 | Anesthesiology Progress Note ---
Date of Service January 13, 2021 Anesthesia Post Procedure Vital Signs Vital Signs: Temp Pulse Pulse Pulse Resp BP BP 01/13/21 16:30 56 L 19 136/66 01/13/21 16:20 59 L 22 120/94 01/13/21 16:10 59 L 20 150/83 H 01/13/21 16:00 59 L 13 163/91 H 01/13/21 15:50 66 21 168/113 H 01/13/21 15:42 36.7 C 69 14 147/85 H 01/13/21 13:10 36.6 C 64 20 157/97 H 01/13/21 08:02 36.6 C 57 L 18 146/78 H 01/13/21 02:50 70 12 01/12/21 22:47 36.7 C 72 16 156/88 H 01/12/21 22:33 72 26 H 01/12/21 16:51 36.6 C 58 L 16 169/92 H Pulse Ox 01/13/21 16:30 98 01/13/21 16:20 97 01/13/21 16:10 99 01/13/21 16:00 100 01/13/21 15:50 100 01/13/21 15:42 100 01/13/21 13:10 97 01/13/21 08:02 97 01/13/21 02:50 92 01/12/21 22:47 92 01/12/21 22:33 97 01/12/21 16:51 98 Pain Intensity Right Lower Back: Pain Intensity: 7 Transfer of Care Handoff Completed per policy Notes Mental Status: alert / awake / arousable and participated in evaluation Patient Amnestic to Procedure: Yes Nausea / Vomiting: adequately controlled Pain: improving with treatment Airway Patency, RR, SpO2: stable & adequate BP & HR: stable & adequate Hydration State: stable & adequate Anesthetic Complications: no major complications apparent and Pt Satisfied with anesthetic care
[2021-01-13] MEDS ORDERED: SOD PHOSPHATE/SOD BIPHOSPHATE ENEMA 132 ML BTL PR PRN (17:21)
[2021-01-13] MEDS ORDERED: METOCLOPRAMIDE HCL INJ 5 MG/ML 2 ML VIAL IV PRN (17:21)
[2021-01-13] MEDS ORDERED: ACETAMINOPHEN 1,000 MG/100 ML VIAL IV PRN (17:21)
[2021-01-13] MEDS ORDERED: LORazepam 0.5 MG TAB PO PRN (17:21)
[2021-01-13] MEDS ORDERED: PROMETHAZINE HCL 12.5 MG in SODIUM CHLORIDE 0.9% 50 ML IV PRN (17:21)
[2021-01-13] MEDS ORDERED: MAGNESIUM HYDROXIDE SUSP 30 ML UDC PO PRN (17:21)
[2021-01-13] MEDS ORDERED: ACETAMINOPHEN 500 MG TAB PO PRN (17:21)
[2021-01-13] MEDS ORDERED: diphenhydrAMINE Capsule 25 MG CAP PO PRN (17:21)
[2021-01-13] MEDS ORDERED: NALOXONE HCL 0.4 MG/1 ML VIAL/CARP IV PRN (17:21)
[2021-01-13] MEDS ORDERED: traMADol HCL 50 MG TABLET PO PRN (17:21)
[2021-01-13] MEDS ORDERED: LORazepam 0.5 MG/1 ML VIAL IV PRN (17:21)
[2021-01-13] MEDS ORDERED: ALUMINUM/MAGNESIUM SUSP 30 ML UDC PO PRN (17:21)
[2021-01-13] MEDS ORDERED: FAMOTIDINE 20 MG TAB PO PRN (17:21)
[2021-01-13] MEDS ORDERED: DO NOT ADMINISTER PNEUMOCOCCAL VACCINE PRN (17:21)
[2021-01-13] MEDS ORDERED: DO NOT ADMINISTER FLU VACCINE PRN (17:21)
[2021-01-13] MEDS ORDERED: hydrOXYzine HCl 25 MG TAB PO PRN (17:21)
[2021-01-13] MEDS ORDERED: ONDANSETRON 4 MG OD TAB PO PRN (17:21)
[2021-01-13] MEDS ORDERED: bisacodyL 10 MG SUPP PR PRN (17:21)
--- NOTE | 2021-01-13 18:09 | Hospitalist Progress Note ---
Date of Service January 13, 2021 Assessment & Plan (1) Protrusion of lumbar intervertebral disc: (2) Intractable back pain: Plan: -Patient presenting from home with reports of worsening back pain, RLE numbness and weakness x 11 days -Outpatient MRI showed right foraminal disc protrusion L1-L2 resulting in mild right foraminal stenosis -In the ED, patient received IV Dilaudid and IV Decadron -Spine Ortho consult, case discussed with Dr. Messer -s/p emergent far lateral discectomy L1-L2 on the right. -No posop complication -Continue incentive spirometry -Continue pain control - PT/OT eval -Fall precaution (3) Terrazas esophagus: Plan: -Continue PPI (4) Sleep apnea: Plan: -CPAP as per home settings (5) DVT prophylaxis: Plan: -SCDs Admission and Anticipated Discharge Date Admission Date: January 13, 2021 Subjective Patient was seen and examined for follow up of back pain Plan with no acute distress Patient said that he felt a lot better after the procedure Denies any chest pain, palpitation, dizziness, shortness of breath. Review of Systems Review of Systems: All systems reviewed & are unremarkable except as noted in Subjective Physical Exam Physical Exam: General- No acute distress Head- atraumatic Eyes- PERRL, EOMI, ENT- oropharynx clear Neck- supple, no JVD Lungs- clear to auscultation Heart- regular rhythm; no murmur Abdomen- normal bowel sounds, soft, nontender Extremities- no calf tenderness Neuro- alert, oriented x 3; PERRL, EOMI; no facial palsy; no dysarthria Skin- warm & dry Results & Data Results & Data ([facility]) Vital Signs (Past 12 Hours) Vital Signs Temp Pulse Pulse Resp BP BP Pulse Ox 01/13/21 17:40 37.0 C 77 18 131/80 95 01/13/21 17:10 37.0 C 61 16 123/71 95 01/13/21 17:00 37.1 C 48 L 20 103/72 95 01/13/21 16:50 37.1 C 51 L 20 132/78 94 01/13/21 16:40 37.1 C 58 L 24 135/77 96 01/13/21 16:30 56 L 19 136/66 98 01/13/21 16:20 59 L 22 120/94 97 01/13/21 16:10 59 L 20 150/83 H 99 01/13/21 16:00 59 L 13 163/91 H 100 01/13/21 15:50 66 21 168/113 H 100 01/13/21 15:42 36.7 C 69 14 147/85 H 100 01/13/21 13:10 36.6 C 64 20 157/97 H 97 01/13/21 08:02 36.6 C 57 L 18 146/78 H 97
[2021-01-13] MEDS: LACTATED RINGER'S 1,000 ML IV SCH (19:35)
[2021-01-13] MEDS: ceFAZolin 2000MG 2,000 MG/15 ML SYR IV SCH (21:00)
[2021-01-13] MEDS ORDERED: DOCUSATE SODIUM/SENNA 50/8.6MG TAB PO SCH (21:00)
[2021-01-14] MEDS: LACTATED RINGER'S 1,000 ML IV SCH (01:07)
[2021-01-14] MEDS ORDERED: POLYETHYLENE (MIRALAX) 17 GM PACK PO SCH (06:00)
[2021-01-14] MEDS: ceFAZolin 2000MG 2,000 MG/15 ML SYR IV SCH (06:04)
[2021-01-14 06:12] LABS: Hematocrit (blood only) 46.5 % (42-52); Hemoglobin 15.8 g/dL (14.0-18.0); Mean Corpuscular Hemoglobin 30.4 pg (25-34); Mean Corpuscular Volume 89.6 fL (80-100); Mean Platelet Volume 10.6 fL (7.4-10.4); Platelet Count 218 K/uL (130-400); RDW Coefficient of Variation 13.3 % (11.5-14.5); RDW Standard Deviation 43.7 fL (36.4-46.3); Red Blood Count 5.19 M/uL (4.7-6.1); White Blood Count 18.25 K/uL (4.8-10.8)
[2021-01-14 06:53] LABS: BUN Creatinine Ratio 17.7 (10-20); Calcium 8.8 mg/dl (8.5-10.1); Creatinine Clr Calc Pharmacy 77.9 ml/min; Est GFR (African American) 70.2 ml/min; Est GFR (Non-African American) 60.6 ml/min; Potassium 4.4 mmol/L (3.5-5.1)
--- NOTE | 2021-01-14 08:05 | Discharge Summary ---
Date of Service January 14, 2021 Admission HPI Per Admitting Provider 55-year-old male with PMH DEBBIE on CPAP, Terrazas's esophagus, and other problems listed below who presents the ED for evaluation of intractable back pain. Patient reports that 11 days ago, he developed a low right-sided back pain. He reports the pain came on suddenly while walking. Pain has been progressively getting worse. Pain is located in the right lower back and radiates into the right buttock. Patient also has associated numbness extending into the right anterior thigh and down the lateral aspect of the right leg to the toes. Reports that right leg feels weak when he is walking. He denies urinary incontinence and retention however notes that urine stream is decreased. Denies bowel dysfunction. As an outpatient, was seen by his PCP and MRI was ordered that showed a right foraminal disc protrusion L1-L2. He completed course of prednisone without any improvement in his symptoms. He was also taking tramadol and baclofen without relief. Patient denies fevers and chills. No chest pain or shortness of breath. Denies abdominal pain, nausea, vomiting, diarrhea. No dysuria or hematuria. In the ED, patient received IV dexamethasone 10 mg and IV Dilaudid 1 mg. Pain is improved however patient is reluctant to go home. Patient is hemodynamic stable. Labs are unremarkable. Principal Diagnosis Far lateral disc condition L1-L2 on the right Discharge Data Allergies Allergy/AdvReac Type Severity Reaction Status Date / Time codeine AdvReac Unknown gi upsets Verified 09/13/19 12:49 morphine AdvReac Unknown gi upsets Verified 09/13/19 12:49 [id number] Reductase AdvReac Unknown Muscle Pain Verified 09/13/19 12:49 Inhibitor Consultations 01/12/21 13:50 ED Decision to Admit Stat 01/12/21 16:47 Consult Orthopedic Surgery Routine Procedures Performed Operation Date: 01/13/21 07:00 Actual Procedures p Right Far Lateral L1-L2 Discectomy(Right) - Grant Messer, Ordered Studies 01/13/21 14:03 FL spine 1V any level Routine Hospital Course (1) Protrusion of lumbar intervertebral disc: Patient is admitted with extreme radiculopathy affecting right lower extremity. He underwent far lateral discectomy the next day tolerated this well and postop day #1 his pain was completely resolved ambulating halls X strength testing. Socially discharged home. Discharge orders instructions from the chart for further review. Total Time Total Time Spent Total Time Spent (In Minutes): 20 minutes Discharge Plan Discharge Items Patient Disposition: Home - Self-Care Reason For Visit: INTRACTABLE BACK PAIN Discharge Diagnosis: Lumbar disc condition with radiculopathy Activity: As commented below Non-emergency contact: Primary Care Provider Call non-emergency contact if: you have any medication questions Follow-up/Referrals: César Zhao MD [Primary Care Provider] - Diet: Regular Addtl Attending Provider Instructions: ACTIVITY RECOMMENDATIONS: SELF CARE INSTRUCTIONS AFTER A LAMINECTOMY 1. No prolonged sitting (less than 30 minutes for the first 3 weeks after surgery). 2. No bending, lifting more than 5 pounds, or twisting (roll like a log when turning in bed). 3. You may shower 3 days after surgery if no drainage from wound. Thoroughly dry wound. Do not soak in the tub. 4. Please walk as much as you can for exercise. Gradually increase the distance that you walk as your endurance increases. 5. You may drive in 7-10 days if you are comfortable and no longer requiring pain medications. SPECIAL CARE INSTRUCTIONS: VERY IMPORTANT TO READ AND REVIEW A. Your surgical incision has been closed with a cosmetic suture under the skin that will dissolve in about 6 weeks. In 14 days, you can use a pair of clean scissors and cut the suture that is left outside of the skin at the ends of your incision. B. Complications are uncommon, but please contact us if you have any signs or symptoms of: 1. wound infection (fever higher than 102.5 degrees F, redness, separation of wound, drainage, or increasing pain from the incision) 2. blood clots in legs (pain, swelling, redness and warmth in legs) 3. urinary tract infection (fever higher than 102.5 degrees, burning upon urination or increased frequency of urination) 4. nerve problems (inability to walk on your toes or heels, numbness, loss of bowel or bladder control) 5. any other symptoms that concern you. C. Please call the office at if you have any concerns or questions about your operation or recovery. MANAGING PAIN AFTER SPINAL SURGERY 1. Narcotic medication is intended for short-term use and will be provided for surgical pain. Surgical pain usually lasts for a period of 4-6 weeks. Narcotic medication includes Percocet, Vicodin, Darvocet, Tylenol #3 or Lortab. 2. Longer-term pain is more appropriately treated with non-narcotic medication such as Tylenol ES. 3. Muscle spasm is not appropriately treated with narcotics. Muscle relaxers such as Soma, Flexeril or Skelaxin can be used along with Tylenol ES. 4. Remember that we all live with some "aches and pains". This is not unusual or uncommon after an injury or as we get older. 5. We will provide appropriate medication within the normal guidelines of their prescribed use. We will also be very cautious and aware of potential abuse and extended duration of patients' medication needs. 6. Please allow 2-3 days to process refills. Prescriptions will not be mailed but must be picked up at the office. FOLLOW UP VISIT: Keep your scheduled follow-up appointment. Any questions, please call the office at . Pending Studies at Discharge: No Stand-Alone Forms: My [facility], Smoking Cessation Medications and DC Order Prescriptions: New tramadol 50 mg tablet 50 mg PO Q6H PRN (Reason: pain, moderate) Qty: 20 RF: 0 oxycodone 5 mg tablet 5 mg PO Q6H PRN (Reason: pain, severe) Qty: 20 RF: 0 Continued omeprazole 20 mg Tablet,Delayed Release (Dr/Ec) 20 mg PO DAILY RF: 0 cetirizine [Zyrtec] 10 mg Tablet 10 mg PO QAM PRN (Reason: Allergic Symptoms) RF: 0 baclofen 20 mg tablet 20 mg PO BID PRN (Reason: Muscle Spasm) RF: 0 Discharge Orders: Discharge Order (Routine); Ordered 01/14/21 Ordered By: Grant Messer Admission Data Admit Date/Time: 01/13/21 15:39 Attending Provider: Mirza Peña Admit Provider: rBandyn Mckeon Primary Care Provider: César Zhao Other Providers: Rosi Scott ; Tereso Magaña ; Grant Messer ; Co Brandyn wheat
--- NOTE | 2021-01-14 08:26 | Hospitalist Progress Note ---
Date of Service January 14, 2021 Assessment & Plan (1) Protrusion of lumbar intervertebral disc: (2) Intractable back pain: Plan: -Patient presenting from home with reports of worsening back pain, RLE numbness and weakness x 11 days -Outpatient MRI showed right foraminal disc protrusion L1-L2 resulting in mild right foraminal stenosis -In the ED, patient received IV Dilaudid and IV Decadron -Spine Ortho consult, case discussed with Dr. Messer -s/p emergent far lateral discectomy L1-L2 on the right. -Patient feeling much better after surgery -Seen by orthopedics this morning, okay for discharge -Continue incentive spirometry -Continue pain control - PT/OT eval -Fall precaution (3) Terrazas esophagus: Plan: -Continue PPI (4) Sleep apnea: Plan: -CPAP as per home settings (5) DVT prophylaxis: Plan: -SCDs Admission and Anticipated Discharge Date Admission Date: January 13, 2021 Subjective Patient was seen and examined for follow up of back pain now s/p spinal surgery Patient reports feeling 100% better since the surgery Denies any chest pain, palpitation, dizziness, shortness of breath. He is ambulating in the hallways, reports minimal back pain He is passing gas, no BM yet, urinating without difficulty Review of Systems Review of Systems: All systems reviewed & are unremarkable except as noted in Subjective Physical Exam Physical Exam: General- No acute distress Head- atraumatic Eyes- PERRL, EOMI, ENT- oropharynx clear Neck- supple, no JVD Lungs- clear to auscultation b/l w/o any wheezing rhonchi crackles Heart- regular rhythm; no murmur Abdomen- normal bowel sounds, soft, nontender Extremities- no calf tenderness, no LE edema Neuro- alert, oriented x 3; PERRL, EOMI; no facial palsy; no dysarthria Skin- warm & dry Results & Data Results & Data ([facility]) Vital Signs (Past 12 Hours) Vital Signs Temp Pulse Pulse Resp BP BP Pulse Ox 01/14/21 07:39 36.7 C 63 18 147/89 H 98 01/14/21 03:33 36.6 C 68 16 117/65 96 01/14/21 01:29 60 16 93 01/13/21 22:43 36.6 C 87 16 159/80 H 95 Laboratory Results 01/14/21 01/14/21 Range/Units 05:40 05:40 WBC 18.25 H (4.8-10.8) K/uL RBC 5.19 (4.7-6.1) M/uL Hgb 15.8 (14.0-18.0) g/dL Hct 46.5 (42-52) % MCV 89.6 (80-100) fL MCH 30.4 (25-34) pg MCHC 34.0 (32-36) g/dL RDW Std Deviation 43.7 (36.4-46.3) fL RDW Coeff of Osmani 13.3 (11.5-14.5) % Plt Count 218 (130-400) K/uL MPV 10.6 H (7.4-10.4) fL Sodium 135 L (136-145) mmol/L Potassium 4.4 (3.5-5.1) mmol/L Chloride 104 (98-107) mmol/L Carbon Dioxide 29 (21-32) mmol/L Anion Gap 2.0 L (3-11) BUN 24 H (7-18) mg/dl Creatinine 1.33 (0.6-1.4) mg/dl Est Cr Clr Drug Dosing 77.9 ml/min Est GFR ( Amer) 70.2 ml/min Est GFR (Non-Af Amer) 60.6 ml/min BUN/Creatinine Ratio 17.7 (10-20) Glucose 119 H (70-99) mg/dl Calcium 8.8 (8.5-10.1) mg/dl Medications Administered Current Inpatient Medications Acetaminophen (Acetaminophen 500 Mg Tab) 1,000 mg PO Q8H PRN PRN Reason: MILD Pain Scale 1,2,3 & Pre PT Stop: 02/12/21 17:20 Al Hydrox/Mg Hydrox/Simethicone (Aluminum/Magnesium Susp 30 Ml Udc) 30 ml PO Q6H PRN PRN Reason: Dyspepsia Stop: 02/12/21 17:20 Bisacodyl (Bisacodyl 10 Mg Supp) 10 mg AL DAILY PRN PRN Reason: Constipation Stop: 02/12/21 17:20 Diphenhydramine HCl (Diphenhydramine Capsule 25 Mg Cap) 25 mg PO Q6H PRN PRN Reason: Allergic Rhinitis/Insomnia Stop: 02/12/21 17:20 Famotidine (Famotidine 20 Mg Tab) 20 mg PO Q12H PRN PRN Reason: Dyspepsia Stop: 02/12/21 17:20 Hydromorphone HCl (Hydromorphone Inj 0.5 Mg/0.5 Ml Syr) 0.5 mg IV Q6H PRN PRN Reason: Pain Stop: 01/26/21 16:46 Last Admin: 01/13/21 09:35 Dose: 0.5 mg Documented by: Hydroxyzine HCl (Hydroxyzine Hcl 25 Mg Tab) 25 mg PO Q8H PRN PRN Reason: Anxiety Stop: 02/12/21 17:20 Acetaminophen (Ofirmev) 1,000 mg in 100 mls @ 400 mls/hr IV Q8H PRN PRN Reason: Pain Rating 1-3 & Pre PT Stop: 01/16/21 17:20 Last Infusion: 01/14/21 06:49 Dose: Infused Documented by: Lorazepam (Ativan) 0.5 mg in 1 mls @ 1 mls/min IV Q8H PRN PRN Reason: Sedation/Anxiety Stop: 02/12/21 17:20 Promethazine HCl 12.5 mg/ (Sodium Chloride) 50.5 mls @ 202 mls/hr IV Q6H PRN PRN Reason: Nausea &/or Vomiting Stop: 02/12/21 17:20 Influenza Virus Vaccine Quadrival (Do Not Administer Flu Vaccine) 1 ea N/A PRN PRN PRN Reason: Notification Stop: 02/12/21 17:20 Lorazepam (Lorazepam 0.5 Mg Tab) 0.5 mg PO Q8H PRN PRN Reason: Sedation/Anxiety Stop: 02/12/21 17:20 Magnesium Hydroxide (Magnesium Hydroxide Susp 30 Ml Udc) 30 ml PO Q24H PRN PRN Reason: Constipation Stop: 02/12/21 17:20 Metoclopramide HCl (Metoclopramide Hcl Inj 5 Mg/Ml 2 Ml Vial) 10 mg IV Q6H PRN PRN Reason: Nausea &/or Vomiting Stop: 02/12/21 17:20 Naloxone HCl (Naloxone Hcl 0.4 Mg/1 Ml Vial/Carp) 0.1 mg IV Q5M PRN PRN Reason: Oversedation/Resp depression Stop: 02/12/21 17:20 Ondansetron HCl (Ondansetron Inj 2 Mg/Ml 2 Ml Vial) 4 mg IV Q6H PRN PRN Reason: Nausea &/or Vomiting Stop: 02/12/21 17:20 Ondansetron HCl (Ondansetron 4 Mg Od Tab) 4 mg PO Q6H PRN PRN Reason: Nausea Stop: 02/12/21 17:20 Oxycodone HCl (Oxycodone Hcl Ir 5 Mg Tab (Immediate Release)) 5 mg PO Q6H PRN PRN Reason: Pain Stop: 01/26/21 16:46 Last Admin: 01/13/21 05:54 Dose: 5 mg Documented by: Pantoprazole Sodium (Pantoprazole 40 Mg Tab) 40 mg PO DAILY DAVON; Protocol Stop: 02/12/21 08:59 Last Admin: 01/13/21 12:34 Dose: 40 mg Documented by: Pneumococcal Polyvalent Vaccine (Do Not Administer Pneumococcal Vaccine) 1 ea N/A PRN PRN PRN Reason: Notification Stop: 02/12/21 17:20 Polyethylene Glycol (Polyethylene (Miralax) 17 Gm Pack) 17 gm PO Q6 DAVON Stop: 02/13/21 05:59 Last Admin: 01/14/21 06:04 Dose: 17 gm Documented by: Senna/Docusate Sodium (Docusate Sodium/Senna 50/8.6mg Tab) 2 tab PO HS DAVON Stop: 02/12/21 20:59 Last Admin: 01/13/21 20:55 Dose: 2 tab Documented by: Sodium Biphosphate/Sodium Phosphate (Sod Phosphate/Sod Biphosphate Enema 132 Ml Btl) 132 ml AL ONE PRN PRN Reason: Constipation Stop: 02/12/21 17:20 Tramadol HCl (Tramadol Hcl 50 Mg Tablet) 50 - 100 mg PO Q4H PRN PRN Reason: Moderate-Severe pain & Pre PT Stop: 02/12/21 17:20
[2021-01-14] MEDS: PANTOprazole 40 MG TAB PO SCH (08:43)
--- NOTE | 2021-01-14 09:58 | Discharge Summary ---
Date of Service January 14, 2021 Admission HPI Per Admitting Provider 55-year-old male with PMH DEBBIE on CPAP, Terrazas's esophagus, and other problems listed below who presents the ED for evaluation of intractable back pain. Patient reports that 11 days ago, he developed a low right-sided back pain. He reports the pain came on suddenly while walking. Pain has been progressively getting worse. Pain is located in the right lower back and radiates into the right buttock. Patient also has associated numbness extending into the right anterior thigh and down the lateral aspect of the right leg to the toes. Reports that right leg feels weak when he is walking. He denies urinary incontinence and retention however notes that urine stream is decreased. Denies bowel dysfunction. As an outpatient, was seen by his PCP and MRI was ordered that showed a right foraminal disc protrusion L1-L2. He completed course of prednisone without any improvement in his symptoms. He was also taking tramadol and baclofen without relief. Patient denies fevers and chills. No chest pain or shortness of breath. Denies abdominal pain, nausea, vomiting, diarrhea. No dysuria or hematuria. In the ED, patient received IV dexamethasone 10 mg and IV Dilaudid 1 mg. Pain is improved however patient is reluctant to go home. Patient is hemodynamic stable. Labs are unremarkable. Admission Exam Per Admitting Provider Constitutional: WD/WN, vitals as above Eyes: PERRL, conjunctivae normal, anicteric sclerae ENMT: external ear and nose normal, oropharynx normal Respiratory: normal respiratory effort, lungs clear to auscultation Cardiovascular: Rate/Rhythm: regular rate and regular rhythm Vessels: normal peripheral pulses Extremities: no edema Gastrointestinal (Abdomen): normal bowel sounds, soft, nontender, no hepatosplenomegaly Musculoskeletal: no cyanosis or clubbing, extremities motor strength 5/5 Right-sided lumbar paraspinal tenderness Skin: no rashes, warm and dry Neurologic: PERRL, EOMI, accommodation nl, no face palsy, no dysarthria Psychiatric: A+Ox3, euthymic affect Principal Diagnosis Lumbar disc condition with radiculopathy Discharge Exam General- No acute distress Head- atraumatic Eyes- PERRL, EOMI, ENT- oropharynx clear Neck- supple, no JVD Lungs- clear to auscultation b/l w/o any wheezing rhonchi crackles Heart- regular rhythm; no murmur Abdomen- normal bowel sounds, soft, nontender Extremities- no calf tenderness, no LE edema Neuro- alert, oriented x 3; PERRL, EOMI; no facial palsy; no dysarthria Skin- warm & dry Discharge Data Allergies Allergy/AdvReac Type Severity Reaction Status Date / Time codeine AdvReac Unknown gi upsets Verified 09/13/19 12:49 morphine AdvReac Unknown gi upsets Verified 09/13/19 12:49 [id number] Reductase AdvReac Unknown Muscle Pain Verified 09/13/19 12:49 Inhibitor Consultations 01/12/21 13:50 ED Decision to Admit Stat 01/12/21 16:47 Consult Orthopedic Surgery Routine Procedures Performed Operation Date: 01/13/21 07:00 Actual Procedures p Right Far Lateral L1-L2 Discectomy(Right) - Grant Messer DO Ordered Studies 01/13/21 14:03 FL spine 1V any level Routine Hospital Course (1) Protrusion of lumbar intervertebral disc: (2) Intractable back pain: -Patient presenting from home with reports of worsening back pain, RLE numbness and weakness x 11 days -Outpatient MRI showed right foraminal disc protrusion L1-L2 resulting in mild right foraminal stenosis -In the ED, patient received IV Dilaudid and IV Decadron -Spine Ortho consult, case discussed with Dr. Messer -s/p emergent far lateral discectomy L1-L2 on the right. -Patient feeling much better after surgery -Seen by orthopedics this morning, okay for discharge -Continue incentive spirometry -Continue pain control - PT/OT eval -Fall precaution (3) Terrazas esophagus: -Continue PPI (4) Sleep apnea: -CPAP as per home settings (5) DVT prophylaxis: -SCDs Total Time Total Time Spent Total Time Spent (In Minutes): 35 Discharge Plan Discharge Items Patient Disposition: Home - Self-Care Reason For Visit: INTRACTABLE BACK PAIN Discharge Diagnosis: Lumbar disc condition with radiculopathy Activity: As commented below Non-emergency contact: Primary Care Provider Call non-emergency contact if: you have any medication questions Follow-up/Referrals: César Zhao MD [Primary Care Provider] - (Date & Time 01/19/2021 11:20 AM Provider Stephanie Weinberg MD Department Family Medicine [facility] ) Diet: Regular Addtl Attending Provider Instructions: ACTIVITY RECOMMENDATIONS: SELF CARE INSTRUCTIONS AFTER A LAMINECTOMY 1. No prolonged sitting (less than 30 minutes for the first 3 weeks after surgery). 2. No bending, lifting more than 5 pounds, or twisting (roll like a log when turning in bed). 3. You may shower 3 days after surgery if no drainage from wound. Thoroughly dry wound. Do not soak in the tub. 4. Please walk as much as you can for exercise. Gradually increase the distance that you walk as your endurance increases. 5. You may drive in 7-10 days if you are comfortable and no longer requiring pain medications. SPECIAL CARE INSTRUCTIONS: VERY IMPORTANT TO READ AND REVIEW A. Your surgical incision has been closed with a cosmetic suture under the skin that will dissolve in about 6 weeks. In 14 days, you can use a pair of clean scissors and cut the suture that is left outside of the skin at the ends of your incision. B. Complications are uncommon, but please contact us if you have any signs or symptoms of: 1. wound infection (fever higher than 102.5 degrees F, redness, separation of wound, drainage, or increasing pain from the incision) 2. blood clots in legs (pain, swelling, redness and warmth in legs) 3. urinary tract infection (fever higher than 102.5 degrees, burning upon urination or increased frequency of urination) 4. nerve problems (inability to walk on your toes or heels, numbness, loss of bowel or bladder control) 5. any other symptoms that concern you. C. Please call the office at if you have any concerns or questions about your operation or recovery. MANAGING PAIN AFTER SPINAL SURGERY 1. Narcotic medication is intended for short-term use and will be provided for surgical pain. Surgical pain usually lasts for a period of 4-6 weeks. Narcotic medication includes Percocet, Vicodin, Darvocet, Tylenol #3 or Lortab. 2. Longer-term pain is more appropriately treated with non-narcotic medication such as Tylenol ES. 3. Muscle spasm is not appropriately treated with narcotics. Muscle relaxers such as Soma, Flexeril or Skelaxin can be used along with Tylenol ES. 4. Remember that we all live with some "aches and pains". This is not unusual or uncommon after an injury or as we get older. 5. We will provide appropriate medication within the normal guidelines of their prescribed use. We will also be very cautious and aware of potential abuse and extended duration of patients' medication needs. 6. Please allow 2-3 days to process refills. Prescriptions will not be mailed but must be picked up at the office. FOLLOW UP VISIT: Keep your scheduled follow-up appointment. Any questions, please call the office at . Addtl Neurosurgical Nurse Provider Instructions: Follow up with your primary care doctor on January 19. Make sure to read instructions from the orthopedic surgeon, Dr. Messer, above. Contact orthopedics office with any questions regarding your surgery or care for your incision. Pending Studies at Discharge: No Stand-Alone Forms: My [facility], Opioid Pain Management, Smoking Cessation Medications and DC Order Prescriptions: New tramadol 50 mg tablet 50 mg PO Q6H PRN (Reason: pain, moderate) Qty: 20 RF: 0 oxycodone 5 mg tablet 5 mg PO Q6H PRN (Reason: pain, severe) Qty: 20 RF: 0 Continued omeprazole 20 mg Tablet,Delayed Release (Dr/Ec) 20 mg PO DAILY RF: 0 cetirizine [Zyrtec] 10 mg Tablet 10 mg PO QAM PRN (Reason: Allergic Symptoms) RF: 0 baclofen 20 mg tablet 20 mg PO BID PRN (Reason: Muscle Spasm) RF: 0 Discharge Orders: Discharge Order (Routine); Ordered 01/14/21 Ordered By: Grant Messer Admission Data Admit Date/Time: 01/13/21 15:39 Attending Provider: Mirza Peña Admit Provider: Brandyn Mckeon Primary Care Provider: César Zhao Other Providers: Rosi Scott ; Tereso Magaña ; Grant Messer ; Brandyn Mckeon Other Interventions: Discharge Summary Assessment (RN) Last Done: 01/14/21 09:43
== END 2021-01-14 10:48 | disposition home or self-care (01) ==
LOC: 3E 11:21 → ED 11:21 → 3E 16:31 → SUATTDRO 01-13 15:39

== ENCOUNTER 2022-08-28 09:26 | Observation (INO) ==
--- NOTE | 2022-08-28 09:29 | Emergency Department Note ---
Impression & Plan Stroke-like symptom, Medication side effect, Episode of shaking, Hypocalcemia, Chest pain ED Provider Note NAME: LUZ BROOKS AGE: 57 SEX: M : 1965 ARRIVES VIA: Ambulance INFORMANT: Patient, ED PROVIDER(S): Nestor Bryan MD CHIEF COMPLAINT: Slurred speech, shaking episode MEDICAL DECISION MAKING: Patient presented from home due to concern for difficulty with speech as well as shaking and increasing tone and possible spasm of the upper extremities. The patient was directable and followed all commands moving all 4 extremities. Code stroke had been initiated and the patient had already gone to CT including CT angiography of the head and neck. I did speak with radiology. No obvious concerning findings per Dr. Maxwell. I did also speak with telestroke physician Dr. Arredondo. She was unable to formally evaluate the patient due to concerns with audio issues on the cart. However, she was able to review the patient's imaging and did not show any any concerning findings that would require intervention at this time. Patient did receive additional IV Ativan as well as a loading Keppra 20 mg/kg at approximately 20 to 50 mg. Patient's blood work is grossly unremarkable and a with mild hypocalcemia. Patient is normal white count H&H and platelet count. Kidney function is unremarkable. Troponin is not elevated the patient's recently starting of gabapentin this could be the possible cause. The patient had just begun taking this yesterday. MRI of the brain was ordered. I did speak the [facility] Shelby Mart PA-C and the patient was admitted by Dr. Smart. Of note the family did express concern about him being admitted to the hospital and expressed being transferred to [place] for possible stroke I did explain to the patient's family that that he is at a stroke center but we did do not have interventional capabilities. I did state that the [facility] telestroke neurologist Dr. Arredondo had reviewed the imaging and stated there is nothing to be intervened upon at this time. They did relate that the family member had been misdiagnosed by the neurology team during a prior admission and made the more leery of staying here. They were comfortable with being evaluated by the hospitalist service as the MRI of the patient was being obtained. MRI of the brain is negative. I did convey this to the patient and patient's family. They are comfortable with current plan of care Critical Care: I have personally spent 38 minutes of critical care time in direct management of this patient. This includes bedside care, interpretation of diagnostic studies, and testing, discussion with consultants, patient, and family members, and other require inpatient management activities. This 38 minutes is in excess of all separately billable procedures. Prior /Outside records reviewed: I did review the patient's most recent primary care visit with Dr. Jiménez had been seen for hypertension hyperlipidemia DEBBIE history of Terrazas's and chronic low back pain. Patient reportedly had an MRI of the L-spine completed prior which showed degenerative changes with right foraminal disc protrusion at L1-L2 resulting in mild right foraminal stenosis. Differential diagnosis: Infection, dehydration, metabolic abnormality, hypo/hyperglycemia, electrolyte disturbance, anemia, hypoxia, cardiac sources, intracerebral event, toxicologic, neurologic, as well as other pathologies. Sinus tachycardia, rate of 122, normal intervals normal axis no ST elevations. Diagnostics, as interpreted by me: ECG: Sinus tachycardia, rate of 122 normal intervals normal axis no obvious ST elevations, motion artifact noted Cardiac monitoring: An order was placed for continuous cardiac monitoring. The monitor shows a rate of 122 with tachycardic and regular rhythm. Patient was placed on pulse oximetry Medical decision rules: None Imaging studies: See below I did informally review the patient's CT noncontrast of the head which showed no obvious .ICH HPI: Patient presents due to concern for shaking episode which then developed into speech. The patient's last known well was around 8 AM this morning when he was visited by his who had some shaking of his upper and lower extremities. This progressively got worse as he did complain of some headache and was noted to have some slurred speech and difficulty with speech around 850. EMS evaluated the patient was noted to be hypertensive and presented here for further evaluation and treatment. The patient was recently seen yesterday in the outpatient setting and was started on gabapentin for chronic low back pain. Patient did not been on any medications in the past for hypertension but was to be started on lisinopril. The at bedside provides additional history and states that they were at a [employer] last evening and he did drink alcohol. No recent tramadol or narcotics use. He does chew tobacco but is not a daily drinker no drug use. He had complained of some chest pressure as well. No cough or fever PAST MEDICAL HISTORY: See Below PAST SURGICAL HISTORY: See Below SOCIAL HISTORY: See Below HOME MEDICATIONS: See Below ALLERGIES: See Below VITALS: See Below PHYSICAL EXAMINATION: GENERAL: Moderate distress, tense to bilateral upper extremities EYE EXAM: Normal conjunctiva. PERRL, no anisocoria and EOM's grossly intact w/o pain. NECK: Supple, no nuchal rigidity, no adenopathy, non-tender. No signs of meningismus. FROM of the neck with good chin to chest and neck extension. No stridor. LUNGS: Clear to auscultation. Normal chest wall mechanics. HEART: Tachycardic and rate, no MRG. ABDOMEN: Abdomen soft, non-tender, no masses, no rebound or guarding. BACK: No CVA TTP. SKIN: No rashes and no bruising. UPPER EXTREMITIES: Upper extremities are grossly normal. LOWER EXTREMITIES: Grossly normal, no edema. NEURO EXAM: Awake and alert does follow commands, speech is slow stuttering with an occasional word, moves all 4 extremities to command good training and documentation specialist strength diffuse weakness of all 4 extremities but able to move all of them on command. Past Med/Surg History Medical History Terrazas esophagus Chronic back pain LUMBAR GERD (gastroesophageal reflux disease) High cholesterol Hyperlipidemia Hypertension Rectal bleeding OCCASIONALLY> REASON FOR PROCEDURE Sleep apnea CPAP Surgical History History of esophagogastroduodenoscopy (EGD) Hx of arthroscopic knee surgery MULTIPLE BILAT Hx of hand surgery INDEX FINGER> LEFT HAND Hx of hernia repair X2> INGUINAL Hx of shoulder surgery LEFT Hx of toe surgery LEFT FOOT Hx of vasectomy Family History Father Hypertension Social History Smoking Status: Current every day smoker Tobacco Type: Smokeless Tobacco (Dip or Chew) Second Hand Exposure: No; Do You Dip or Chew Tobacco: Yes; Hx Alcohol Use: Yes Alcohol type: beer and hard liquor Hx Substance Use: No Preferred Language: Maltese Communication Ability: Effective 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 Beliefs That Will Affect Care: None marital status: Current Living Situation: Spouse Feels Safe at Home: Yes Assistive Devices: Walker Allergies Allergies Allergy/AdvReac Type Severity Reaction Status Date / Time codeine AdvReac Unknown gi upsets Verified 09/13/19 12:49 morphine AdvReac Unknown gi upsets Verified 09/13/19 12:49 Ircqzcl-TUV-AmH Reductase AdvReac Unknown Muscle Pain Verified 09/13/19 12:49 Inhibitor [Njvvfci-Yhm-Jsv Reductase Inhibitor] Home Meds Home Medications Medication Instructions Recorded Confirmed omeprazole 20 mg tablet,delayed 20 mg PO DAILY 03/23/18 08/28/22 release cetirizine 10 mg tablet (Zyrtec) 10 mg PO QAM PRN Allergic Symptoms 09/05/19 08/28/22 baclofen 20 mg tablet 20 mg PO HS PRN Muscle Spasm 01/12/21 08/28/22 gabapentin 300 mg capsule 300 mg PO TID 08/28/22 08/28/22 lisinopril 20 mg tablet 20 mg PO DAILY 08/28/22 08/28/22 Results & Data (ED) Vital Signs Vital Signs - 24 hr 08/28/22 09:58 08/28/22 09:27 08/28/22 10:20 Temperature 36.5 C Temperature Source Axillary Pulse Rate 122 H 115 H Pulse Rate [Apical] 118 H Pulse Rate from SpO2 Sensor Pulse Rhythm [Apical] Regular Pulse Strength [Apical] Respiratory Rate 16 16 Respiratory Effort / Characteristics Non-Labored Non-Labored Respiratory Depth Normal Normal Respiratory Pattern Blood Pressure 159/103 H Blood Pressure [Left Arm] 148/89 H Blood Pressure Mean 121 Blood Pressure Mean [Left Arm] 108 Blood Pressure Position [Left Arm] Pulse Oximetry 95 94 Oxygen Delivery Method Room Air Oxymask Oxygen Flow Rate 4 Sepsis Recent Fever Within 48 Hours No Sepsis New/Unexplained Change in Mental Status No Sepsis Action Taken by Nursing No Action Required 08/28/22 10:50 08/28/22 10:14 08/28/22 10:14 Temperature Temperature Source Pulse Rate 122 H Pulse Rate [Apical] 94 H Pulse Rate from SpO2 Sensor 121 H Pulse Rhythm [Apical] Regular Pulse Strength [Apical] Respiratory Rate 16 22 Respiratory Effort / Characteristics Non-Labored Respiratory Depth Normal Respiratory Pattern Blood Pressure 148/89 H Blood Pressure [Left Arm] 111/71 Blood Pressure Mean 108 Blood Pressure Mean [Left Arm] 84 Blood Pressure Position [Left Arm] Pulse Oximetry 96 95 Oxygen Delivery Method Oxymask Oxygen Flow Rate 4 Sepsis Recent Fever Within 48 Hours Sepsis New/Unexplained Change in Mental Status Sepsis Action Taken by Nursing 08/28/22 10:30 08/28/22 11:24 08/28/22 13:13 Temperature Temperature Source Pulse Rate 107 H Pulse Rate [Apical] 82 81 Pulse Rate from SpO2 Sensor 107 H Pulse Rhythm [Apical] Regular Regular Pulse Strength [Apical] Normal Normal Respiratory Rate 22 19 18 Respiratory Effort / Characteristics Non-Labored Spontaneous Non-Labored Spontaneous Respiratory Depth Normal Normal Respiratory Pattern Regular Regular Blood Pressure Blood Pressure [Left Arm] 120/70 123/73 Blood Pressure Mean Blood Pressure Mean [Left Arm] 86 89 Blood Pressure Position [Left Arm] Lying Lying Pulse Oximetry 95 98 99 Oxygen Delivery Method Oxymask Room Air Oxygen Flow Rate 2 Sepsis Recent Fever Within 48 Hours Sepsis New/Unexplained Change in Mental Status Sepsis Action Taken by [facility] Medications Current Medication List: was personally reviewed by me Laboratory Data Attestation: I reviewed the patient's lab results. 08/28/22 09:42 08/28/22 09:42 Lab Results 08/28/22 08/28/22 08/28/22 Range/Units 09:42 09:42 09:42 WBC 10.16 (4.8-10.8) K/ul RBC 5.20 (4.70-6.10) M/uL Hgb 15.8 (14.0-18.0) g/dl Hct 45.4 (42.0-52.0) % MCV 87.3 (80.0-100.0) fL MCH 30.4 (25.0-34.0) pg MCHC 34.8 (32.0-36.0) g/dL RDW Std Deviation 42.5 (36.4-46.3) fL RDW Coeff of Osmani 13.3 (11.5-14.5) % Plt Count 202 (130-400) K/uL MPV 10.7 (9.4-12.4) fL Immature Gran % (Auto) 0.3 % Neut % (Auto) 78.7 % Lymph % (Auto) 10.6 % [place] % (Auto) 8.8 % Eos % (Auto) 1.2 % Baso % (Auto) 0.4 % Neut # (Auto) 8.00 H (1.40-6.50) K/uL Lymph # (Auto) 1.08 L (1.2-3.4) K/uL [place] # (Auto) 0.89 H (0.11-0.59) K/uL Eos # (Auto) 0.12 (0-0.50) K/uL Baso # (Auto) 0.04 (0-0.2) K/uL Immature Gran # (Auto) 0.03 (0.01-0.20) K/uL PT 11.0 (9.0-12.0) Seconds INR 1.0 (0.9-1.1) APTT 27.9 (21.0-31.0) Seconds PTT Ratio 1.0 Sodium 138 (136-145) mmol/L Potassium 4.6 (3.5-5.1) mmol/L Chloride 108 H (98-107) mmol/L Carbon Dioxide 22 (21-32) mmol/L Anion Gap 8 (3-11) BUN 18 (6-23) mg/dl Creatinine 1.39 (0.6-1.4) mg/dl Est Cr Clr Drug Dosing Not Reportable Est GFR ( Amer) 65.7 ml/min Est GFR (Non-Af Amer) 56.7 ml/min BUN/Creatinine Ratio 12.9 (10-20) Glucose 93 (70-99(Fasting)) mg/dl Calcium 8.5 L (8.6-10.3) mg/dl Magnesium 2.0 (1.7-2.4) mg/dl Total Bilirubin 0.7 (0.2-1.0) mg/dl AST 15 (13-39) U/L ALT 19 (7-52) U/L Alkaline Phosphatase 76 (34-104) U/L Troponin I High Sens 4.9 (0-20) pg/ml Total Protein 6.2 (6.0-8.3) gm/dl Albumin 3.9 (3.4-5.0) gm/dl Globulin 2.3 L (2.5-4.0) gm/dl Albumin/Globulin Ratio 1.7 (0.9-2) SARS-CoV-2, RNA, NAAT (NEGATIVE) 08/28/22 Range/Units 11:23 WBC (4.8-10.8) K/ul RBC (4.70-6.10) M/uL Hgb (14.0-18.0) g/dl Hct (42.0-52.0) % MCV (80.0-100.0) fL MCH (25.0-34.0) pg MCHC (32.0-36.0) g/dL RDW Std Deviation (36.4-46.3) fL RDW Coeff of Osmani (11.5-14.5) % Plt Count (130-400) K/uL MPV (9.4-12.4) fL Immature Gran % (Auto) % Neut % (Auto) % Lymph % (Auto) % [place] % (Auto) % Eos % (Auto) % Baso % (Auto) % Neut # (Auto) (1.40-6.50) K/uL Lymph # (Auto) (1.2-3.4) K/uL [place] # (Auto) (0.11-0.59) K/uL Eos # (Auto) (0-0.50) K/uL Baso # (Auto) (0-0.2) K/uL Immature Gran # (Auto) (0.01-0.20) K/uL PT (9.0-12.0) Seconds INR (0.9-1.1) APTT (21.0-31.0) Seconds PTT Ratio Sodium (136-145) mmol/L Potassium (3.5-5.1) mmol/L Chloride (98-107) mmol/L Carbon Dioxide (21-32) mmol/L Anion Gap (3-11) BUN (6-23) mg/dl Creatinine (0.6-1.4) mg/dl Est Cr Clr Drug Dosing Est GFR ( Amer) ml/min Est GFR (Non-Af Amer) ml/min BUN/Creatinine Ratio (10-20) Glucose (70-99(Fasting)) mg/dl Calcium (8.6-10.3) mg/dl Magnesium (1.7-2.4) mg/dl Total Bilirubin (0.2-1.0) mg/dl AST (13-39) U/L ALT (7-52) U/L Alkaline Phosphatase (34-104) U/L Troponin I High Sens (0-20) pg/ml Total Protein (6.0-8.3) gm/dl Albumin (3.4-5.0) gm/dl Globulin (2.5-4.0) gm/dl Albumin/Globulin Ratio (0.9-2) SARS-CoV-2, RNA, NAAT NEGATIVE (NEGATIVE) Administered Medications Discontinued Medications Acetaminophen (Acetaminophen 1000 Mg/100 Ml Iv) 1,000 mg IV NOW STA Stop: 08/28/22 10:21 Last Admin: 08/28/22 10:23 Dose: 1,000 mg Documented By: SADAF Aspirin (Aspirin Chew 324 Mg) 324 mg PO NOW STA Stop: 08/28/22 13:54 Last Admin: 08/28/22 13:56 Dose: 324 mg Documented By: AR Levetiracetam 2,250 mg/ Sodium (Chloride) 272.5 mls @ 999 mls/hr IV NOW STA Stop: 08/28/22 10:11 Last Infusion: 08/28/22 10:58 Dose: 0 mls/hr Documented By: Admin: 08/28/22 10:40 Dose: 999 mls/hr Documented By: SADAF Sodium Chloride (Nss 1000ml) 1,000 mls @ 999 mls/hr IV .Q1H1M ONE Stop: 08/28/22 10:58 Last Infusion: 08/28/22 11:23 Dose: 0 mls/hr Documented By: Admin: 08/28/22 10:02 Dose: 999 mls/hr Documented By: SADAF Magnesium Sulfate/Dextrose (Magnesium Sulfate / D5w) 1 gm in 100 mls @ 100 mls/hr IV NOW ONE Stop: 08/28/22 11:19 Last Infusion: 08/28/22 11:21 Dose: 0 mls/hr Documented By: Admin: 08/28/22 10:23 Dose: 100 mls/hr Documented By: SADAF Calcium Gluconate () 1,000 mg in 60 mls @ 240 mls/hr IV NOW STA Stop: 08/28/22 10:50 Last Infusion: 08/28/22 11:22 Dose: 0 mls/hr Documented By: Admin: 08/28/22 10:48 Dose: 240 mls/hr Documented By: SADAF Ioversol (Optiray 320 500ml) 117 ml IV ONCE ONE Stop: 08/28/22 09:57 Last Admin: 08/28/22 09:56 Dose: 117 ml Documented By: DEMAR Lorazepam (Lorazepam 2 Mg/1 Ml Vial) 1 mg IV NOW STA Stop: 08/28/22 09:56 Last Admin: 08/28/22 10:02 Dose: 1 mg Documented By: SADAF Lorazepam (Lorazepam 2 Mg/1 Ml Vial) 2 mg IV NOW STA Stop: 08/28/22 10:36 Last Admin: 08/28/22 10:40 Dose: 2 mg Documented By: SADAF Lorazepam (Lorazepam 2 Mg/1 Ml Vial) 1 mg IV Q8H PRN PRN Reason: Anxiety/Agitation Stop: 09/27/22 11:33 Last Admin: 08/28/22 12:06 Dose: 1 mg Documented By: AR Ondansetron HCl (Ondansetron Inj 2 Mg/Ml 2 Ml Vial) 4 mg IV NOW STA Stop: 08/28/22 10:21 Last Admin: 08/28/22 10:23 Dose: 4 mg Documented By: SADAF Imaging Data Radiologist's Impression: Head CT 08/28/22 09:29 CT head/brain wo con CLINICAL HISTORY: neuro deficit, acute stroke suspected Technique: Contiguous axial CT images of the head were acquired from the base of the skull to the vertex without intravenous contrast administration. Images were viewed in brain, subdural and bone windows. Automated dose lowering techniques and/or adjustment according to patient size were utilized for this exam. Comparison: None available at the time of this dictation. Findings: The ventricles, basal cisterns, and cerebral sulci are normal. There is no acute intracranial hemorrhage or evidence of acute territorial infarction. Neither mass effect, shift of the midline structures, nor abnormal extra-axial fluid collections are shown. Imaged portions of the paranasal sinuses and mastoid air cells are clear. The orbits appear normal. There are no acute fractures of the calvaria or scalp swelling. Impression: No acute intracranial hemorrhage, no evidence of acute territorial infarction or other acute intracranial disease process. ACT 112: Negative or not required by law. Electronically signed by: Nish Maxwell M.D. 08/28/2022 9:52 AM Head CTA 08/28/22 09:29 CT angio head w con, CT angio neck with con CLINICAL HISTORY: neuro deficit, acute stroke suspected TECHNIQUE: CT angiography of the head and neck was performed following intravenous administration of iodinated contrast. Coronal and sagittal MIPS were obtained from the axial data set and were submitted for review. Automated dose lowering techniques and/or adjustment according to patient size were utilized for this examination. All measurements were calculated based on NASCET criteria. CT DOSE: 2330.93 mGy.cm Comparison: None available at the time of this dictation. FINDINGS: Small thyroid nodules are seen which do not require follow-up by ACR criteria. CTA Neck: A 3 vessel aortic arch is shown. There is no significant atherosclerotic plaque in the aortic arch or the origins of the innominate, left common carotid, and left subclavian arteries. The common carotid, external carotid, cervical segments of the internal carotid arteries, and the cervical segments of the vertebral arteries are patent without hemodynamically significant stenosis. The left vertebral artery is dominant. CTA Head: The anterior and posterior cerebral circulations are patent. No hemodynamically significant stenosis, aneurysm, dissection, or arteriovenous malformation is shown. Of note, the right vertebral artery is hypoplastic and terminates in PICA. IMPRESSION: 1. No occlusion, hemodynamically significant stenosis, or dissection in the major cervical arteries. 2. No occlusion, hemodynamically significant stenosis, aneurysm, dissection, or arteriovenous malformation in the major intracranial arteries. Assessment of stenosis of the internal carotid arteries is based on NASCET criteria. ACT 112: Negative or not required by law. Electronically signed by: Nish Maxwell M.D. 08/28/2022 10:22 AM Neck CTA 08/28/22 09:29 CT angio head w con, CT angio neck with con CLINICAL HISTORY: neuro deficit, acute stroke suspected TECHNIQUE: CT angiography of the head and neck was performed following intravenous administration of iodinated contrast. Coronal and sagittal MIPS were obtained from the axial data set and were submitted for review. Automated dose lowering techniques and/or adjustment according to patient size were utilized for this examination. All measurements were calculated based on NASCET criteria. CT DOSE: 2330.93 mGy.cm Comparison: None available at the time of this dictation. FINDINGS: Small thyroid nodules are seen which do not require follow-up by ACR criteria. CTA Neck: A 3 vessel aortic arch is shown. There is no significant atherosclerotic plaque in the aortic arch or the origins of the innominate, left common carotid, and left subclavian arteries. The common carotid, external carotid, cervical segments of the internal carotid arteries, and the cervical segments of the vertebral arteries are patent without hemodynamically significant stenosis. The left vertebral artery is dominant. CTA Head: The anterior and posterior cerebral circulations are patent. No hemodynamically significant stenosis, aneurysm, dissection, or arteriovenous malformation is shown. Of note, the right vertebral artery is hypoplastic and terminates in PICA. IMPRESSION: 1. No occlusion, hemodynamically significant stenosis, or dissection in the major cervical arteries. 2. No occlusion, hemodynamically significant stenosis, aneurysm, dissection, or arteriovenous malformation in the major intracranial arteries. Assessment of stenosis of the internal carotid arteries is based on NASCET criteria. ACT 112: Negative or not required by law. Electronically signed by: Nish Maxwell M.D. 08/28/2022 10:22 AM Brain MRI 08/28/22 11:04 MR brain wo con CLINICAL HISTORY: shaking/spasm episode, difficulty w/ speech TECHNIQUE: Multiplanar and multisequence MR images of the brain were obtained without intravenous contrast. Comparison: None available at the time of this dictation. FINDINGS: Exam is limited by patient motion. No abnormal restricted diffusion is identified. The white matter is unremarkable. The ventricular system is normal in appearance. No mass is seen. There is no mass effect or midline shift. There is no evidence of acute intraparenchymal hemorrhage. No extra axial fluid collections are seen. The corpus callosum, pituitary gland, and cerebellar tonsils appear grossly unremarkable. Flow voids of the major intracranial arterial vessels are identified. Sinus mucosal thickening is seen most prominent in the bilateral maxillary paranasal sinuses. IMPRESSION: No acute abnormalities. ACT 112: Negative or not required by law. Electronically signed by: Nish Maxwell M.D. 08/28/2022 12:48 PM Discharge Plan Visit Data Chief Complaint: Stroke Alert Stated Complaint: STROKE SX ED Provider: Nestor Bryan Discharge Problem: Stroke-like symptom, Medication side effect, Episode of shaking, Hypocalcemia, Chest pain Patient Disposition: Admitted As Inpatient Discharge Instructions Interventions: ED Discharge Assessment Last Done: 08/28/22 14:31
[2022-08-28] MEDS ORDERED: OPTIRAY 320 500ml IV ONE ×2 (09:36→09:56)
--- NOTE | 2022-08-28 09:54 | CT Scan Report ---
CT head/brain wo con CLINICAL HISTORY: neuro deficit, acute stroke suspected Technique: Contiguous axial CT images of the head were acquired from the base of the skull to the luke ifrah without intravenous contrast administration. Images were viewed in brain, subdural and bone [facility]. Automated dose lowering techniques and/or adjustment according to patient size were utilized for this exam. Comparison: None available at the time of this dictation. Findings: The ventricles, basal cisterns, and cerebral sulci are normal. There is no acute intracranial hemorrh age or evidence of acute territorial infarction. Neither mass effect, shift of the midline structures , nor abnormal extra-axial fluid collections are shown. Imaged portions of the paranasal sinuses and mastoid air cells are clear. The orbits appear normal. There are no acute fractures of the calvaria or scalp swelling. Impression: No acute intracranial hemorrhage, no evidence of acute territorial infarction or other acute intracra nial disease process. ACT 112: Negative or not required by law. Electronically signed by: Nish Maxwell M.D. 08/28/2022 9:52 AM
[2022-08-28] MEDS ORDERED: LORazepam 2 MG/1 ML VIAL IV STA ×2 (09:55→10:35)
[2022-08-28] MEDS ORDERED: LEVETIRACETAM IV STA (09:55)
[2022-08-28] MEDS ORDERED: SODIUM CHLORIDE 0.9% IV STA (09:55)
[2022-08-28] MEDS ORDERED: SODIUM CHLORIDE 0.9% 1000ML 1,000 ML IV ONE (09:58)
[2022-08-28 10:08] LABS: Basophils # (auto) 0.04 K/uL (0-0.2); Basophils % (auto) 0.4 %; Eosinophils # (auto) 0.12 K/uL (0-0.50); Eosinophils % (auto) 1.2 %; Hematocrit (blood only) 45.4 % (42.0-52.0); Hemoglobin 15.8 g/dl (14.0-18.0); Immature Granulocytes # (auto) 0.03 K/uL (0.01-0.20); Immature Granulocytes % (auto) 0.3 %; Lymphocytes # (auto) 1.08 K/uL (1.2-3.4); Lymphocytes % (auto) 10.6 %; Mean Corpuscular Hemoglobin 30.4 pg (25.0-34.0); Mean Corpuscular Hgb Conc 34.8 g/dL (32.0-36.0); Mean Corpuscular Volume 87.3 fL (80.0-100.0); Mean Platelet Volume 10.7 fL (9.4-12.4); Monocytes # (auto) 0.89 K/uL (0.11-0.59); Monocytes % (auto) 8.8 %; Neutrophils % (auto) 78.7 %; Platelet Count 202 K/uL (130-400); RDW Coefficient of Variation 13.3 % (11.5-14.5); RDW Standard Deviation 42.5 fL (36.4-46.3); White Blood Count 10.16 K/ul (4.8-10.8)
--- NOTE | 2022-08-28 10:17 | CT Scan Report ---
CT angio head w con, CT angio neck with con CLINICAL HISTORY: neuro deficit, acute stroke suspected TECHNIQUE: CT angiography of the head and neck was performed following intravenous administration of iodinated contrast. Coronal and sagittal MIPS were obtained from the axial data set and were submitte d for review. Automated dose lowering techniques and/or adjustment according to patient size were ut ilized for this examination. All measurements were calculated based on NASCET criteria. CT DOSE: 2330.93 mGy.cm Comparison: None available at the time of this dictation. FINDINGS: Small thyroid nodules are seen which do not require follow-up by ACR criteria. CTA Neck: A 3 vessel aortic arch is shown. There is no significant atherosclerotic plaque in the aor tic arch or the origins of the innominate, left common carotid, and left subclavian arteries. The co mmon carotid, external carotid, cervical segments of the internal carotid arteries, and the cervical segments of the vertebral arteries are patent without hemodynamically significant stenosis. The left vertebral artery is dominant. CTA Head: The anterior and posterior cerebral circulations are patent. No hemodynamically significan t stenosis, aneurysm, dissection, or arteriovenous malformation is shown. Of note, the right vertebra l artery is hypoplastic and terminates in PICA. IMPRESSION: 1. No occlusion, hemodynamically significant stenosis, or dissection in the major cervical arteries. 2. No occlusion, hemodynamically significant stenosis, aneurysm, dissection, or arteriovenous malfor mation in the major intracranial arteries. Assessment of stenosis of the internal carotid arteries is based on NASCET criteria. ACT 112: Negative or not required by law. Electronically signed by: Nish Maxwell M.D. 08/28/2022 10:22 AM
[2022-08-28] MEDS ORDERED: MAGNESIUM SULFATE / D5W 1 GM/100 ML BAG IV ONE (10:20)
[2022-08-28] MEDS ORDERED: ONDANSETRON INJ 2 MG/ML 2 ML VIAL IV STA (10:20)
[2022-08-28] MEDS ORDERED: ACETAMINOPHEN 1000 MG/100 ML IV IV STA (10:20)
[2022-08-28 10:23] LABS: Partial Thromboplastin Time 27.9 Seconds (21.0-31.0)
[2022-08-28 10:31] LABS: Alanine Aminotransferase 19 U/L (7-52); Albumin Globulin Ratio 1.7 (0.9-2); Albumin Level 3.9 gm/dl (3.4-5.0); Alkaline Phosphatase 76 U/L (34-104); Anion Gap 8 (3-11); Aspartate Aminotransferase 15 U/L (13-39); BUN Creatinine Ratio 12.9 (10-20); Bilirubin,Total 0.7 mg/dl (0.2-1.0); Blood Urea Nitrogen 18 mg/dl (6-23); Calcium 8.5 mg/dl (8.6-10.3); Carbon Dioxide 22 mmol/L (21-32); Chloride 108 mmol/L (98-107); Est GFR (African American) 65.7 ml/min; Est GFR (Non-African American) 56.7 ml/min; Globulin 2.3 gm/dl (2.5-4.0); Glucose 93 mg/dl (70-99(Fasting)); Potassium 4.6 mmol/L (3.5-5.1); Sodium 138 mmol/L (136-145); Total Protein 6.2 gm/dl (6.0-8.3)
[2022-08-28] MEDS ORDERED: CALCIUM GLUCONATE 1,000 MG/60 ML BAG IV STA (10:36)
[2022-08-28 10:37] LABS: Troponin I High Sensitivity 4.9 pg/ml (0-20)
--- NOTE | 2022-08-28 11:24 | History & Physical Report ---
Date of Service August 28, 2022 Assessment & Plan (1) Episode of shaking: (2) Stroke-like symptoms: (3) Alcohol use: (4) Chest pain: (5) B12 deficiency: (6) Terrazas esophagus: (7) Hyperlipidemia: (8) Chronic back pain: (9) Sleep apnea: Plan This is a 57yo M with a PMH of HTN, HLD, daily tobacco use, DEBBIE on CPAP, Terrazas's esophagus, DDD, chronic lower back pain presenting as a stroke alert. Strokelike symptoms Shaking episode Patient with headache, CP, paresthesias of hands, shaking and periodic word finding difficulty this morning upon waking that have all resolved while in ER Did have PCP visit yesterday where he received shingles vaccine for the first time as well as starting gabapentin 300mg (took one dose last evening) Work up in ER essentially unremarkable- Vital signs stable, CT head, CTA head/neck, brain BMI w/wo without any acute abnormalities, no leukocytosis, initial troponin negative Considered CVA and seizure but not a typical presentation. Imaging normal, no post-ictal period per family consistent with seizure. No h/o stroke or seizure. Recently dx with HTN and started on lisinopril but has not started ? multifactorial symptoms - adverse reaction to vaccines, first dose of gabapentin, etoh and underlying anxiety Received a total of 3mg Ativan in ED as well as Keppra loading dose and is now resting comfortably Hold gabapentin, monitor with neuro checks, complete stroke workup with echo w/ bubble study and therapy evaluations per protocol Request for evaluation by [facility] neurology as follows with Dr. Campos Chest pressure Endorsed upon waking, non-radiating and resolved upon presentation to ER Presentation atypical for ACS, initial ECG with sinus tachycardia and artifact (repeat pending), HS troponin negative Monitor overnight on tele, trend troponin Alcohol use Endorses drinking but not nightly - Utox pending, AWSS at risk protocol, PRN Ativan Thiamine and folic acid supplementation in AM HLD Elevated lipid profile as outpatient from 08/27/22 (Total chol: 275, LDL 198, HDL 48, TG 145). Intolerant to statin. PCP considering Zetia H/o Barretts esophagus 2019 EGD with e/o inflammatory esophagitis, continue PPI Vitamin B12 deficiency Outpatient B12 level slightly low. Ordered B12 injection for AM, will need to follow with PCP Chronic back pain Currently comfortable. Continue PRN tylenol, will hold gabapentin given episode this AM DVT Ppx: SQ heparin Code status: FULL PCP: [facility] Dispo: Observation PCU Patient seen in collaboration with Dr. Smart. Please see addendum. Family member Cathy requesting updates: [phone] I spent a total of 75 minutes coordinating, documenting, and providing care for this patient excluding time spent in the performance of separately billed services. History of Present Illness Chief Complaint: strokelike sx Primary Care Provider: Stephanie Weinberg MD This is a 57yo M with a PMH of HTN, HLD, daily tobacco use, DEBBIE on CPAP, Terrazas's esophagus, DDD, chronic lower back pain presenting as a stroke alert. Was seen by PCP yesterday and received tetanus vaccine as well as shingles. Of note, it was the first time receiving his shingles vaccine. Was also started on gabapentin 300 mg 3 times daily for worsening chronic lower back pain, and patient took one 300 mg dose last evening. Woke up this morning later than normal time with headache, generalized weakness, tingling in bilateral hands, central chest pressure and feeling anxious. Patient was able to get out of bed independently but helped him down the stairs due to generalized weakness that felt the same in both legs. Had an episode of clenching his upper body with shaking, per family at bedside. His wtqomf-be-[id number] took his blood pressure at that time and it was notably high at 240/140, although she admits he was clenching and "worked up". Patient had trouble responding verbally during this time so EMS was called. Upon arrival, chest pain resolved and patient was able to communicate and follow commands appropriately, per ER sign-out. Stroke had been initiated in the field and patient underwent CT head, CTA of head and neck. Telestroke was initiated with Hanna but unable to be fully completed due to audio issues with the cart. However, telemetry neurologist did not see any concerning findings that would require intervention at this time. ER physician gave a total of 3 mg of IV Ativan as well as a loading Keppra 20 mg/kg dose due to concern for possible seizure. At our time evaluation, patient resting comfortably and awakens to answer questions appropriately. VSS. Denies any pain at this time. No paresthesias, headache or generalized weakness. No fever, chills, lightheadedness, chest pain, shortness of breath, nausea, vomiting, abdominal pain, dysuria, diarrhea or constipation. Chews tobacco daily. Endorses drinking alcohol 3-4 times per night, most recently drinking vodka last night. Discussed findings and plan for admission extensively with multiple family members at bedside. They communicated request for [facility] neurology to evaluate and consult was placed. Allergies Allergy/AdvReac Type Severity Reaction Status Date / Time codeine AdvReac Unknown gi upsets Verified 09/13/19 12:49 morphine AdvReac Unknown gi upsets Verified 09/13/19 12:49 Ibneduc-YNH-RoY Reductase AdvReac Unknown Muscle Pain Verified 09/13/19 12:49 Inhibitor [Vccgsrm-Rit-Swu Reductase Inhibitor] Home Medications Medication Instructions Recorded Confirmed Type omeprazole 20 mg tablet,delayed 20 mg PO DAILY 03/23/18 08/28/22 History release cetirizine 10 mg tablet (Zyrtec) 10 mg PO QAM PRN Allergic Symptoms 09/05/19 08/28/22 History baclofen 20 mg tablet 20 mg PO HS PRN Muscle Spasm 01/12/21 08/28/22 History gabapentin 300 mg capsule 300 mg PO TID 08/28/22 08/28/22 History lisinopril 20 mg tablet 20 mg PO DAILY 08/28/22 08/28/22 History Past Med/Surg History Medical History Terrazas esophagus Chronic back pain LUMBAR GERD (gastroesophageal reflux disease) High cholesterol Hyperlipidemia Hypertension Rectal bleeding OCCASIONALLY> REASON FOR PROCEDURE Sleep apnea CPAP Surgical History History of esophagogastroduodenoscopy (EGD) Hx of arthroscopic knee surgery MULTIPLE BILAT Hx of hand surgery INDEX FINGER> LEFT HAND Hx of hernia repair X2> INGUINAL Hx of shoulder surgery LEFT Hx of toe surgery LEFT FOOT Hx of vasectomy Family History Father Hypertension Social History Smoking Status: Current every day smoker Tobacco Type: Smokeless Tobacco (Dip or Chew) Second Hand Exposure: No; Do You Dip or Chew Tobacco: Yes; Hx Alcohol Use: Yes Alcohol type: beer and hard liquor Hx Substance Use: No Preferred Language: Polish Communication Ability: Effective Client Technical Support Associate Required: No Beliefs That Will Affect Care: None marital status: Current Living Situation: Spouse Other Information That Helps Us Care for You: No Feels Safe at Home: Yes Assistive Devices: None Review of Systems Review of Systems: At least ten systems reviewed and negative except as noted in the HPI. Physical Exam Physical Exam: Please see Dr. Smart's addendum for physical exam. Results & Data Results & Data Vital Signs (Past 12 Hours) Vital Signs Temp Pulse Pulse Resp BP BP Pulse Ox 08/28/22 10:30 107 H 22 95 08/28/22 10:14 122 H 22 95 08/28/22 10:14 148/89 H 08/28/22 10:50 94 H 16 111/71 96 08/28/22 10:20 118 H 16 148/89 H 94 08/28/22 09:27 36.5 C 115 H 16 159/103 H 95 08/28/22 09:58 122 H O2 Del Method O2 Flow Rate 08/28/22 10:30 08/28/22 10:14 08/28/22 10:14 08/28/22 10:50 Oxymask 4 08/28/22 10:20 Oxymask 4 08/28/22 09:27 Room Air 08/28/22 09:58 Laboratory Results Short CBC 08/28/22 Range/Units 09:42 WBC 10.16 (4.8-10.8) K/ul Hgb 15.8 (14.0-18.0) g/dl Hct 45.4 (42.0-52.0) % Plt Count 202 (130-400) K/uL BMP 08/28/22 09:42 Sodium 138 Potassium 4.6 Chloride 108 H Carbon Dioxide 22 BUN 18 Creatinine 1.39 Glucose 93 Calcium 8.5 L Liver Function 08/28/22 Range/Units 09:42 Total Bilirubin 0.7 (0.2-1.0) mg/dl AST 15 (13-39) U/L ALT 19 (7-52) U/L Alkaline Phosphatase 76 (34-104) U/L Albumin 3.9 (3.4-5.0) gm/dl Diagnostic Findings Head CT 08/28/22 09:29 CT head/brain wo con CLINICAL HISTORY: neuro deficit, acute stroke suspected Technique: Contiguous axial CT images of the head were acquired from the base of the skull to the vertex without intravenous contrast administration. Images were viewed in brain, subdural and bone windows. Automated dose lowering techniques and/or adjustment according to patient size were utilized for this exam. Comparison: None available at the time of this dictation. Findings: The ventricles, basal cisterns, and cerebral sulci are normal. There is no acute intracranial hemorrhage or evidence of acute territorial infarction. Neither mass effect, shift of the midline structures, nor abnormal extra-axial fluid collections are shown. Imaged portions of the paranasal sinuses and mastoid air cells are clear. The orbits appear normal. There are no acute fractures of the calvaria or scalp swelling. Impression: No acute intracranial hemorrhage, no evidence of acute territorial infarction or other acute intracranial disease process. ACT 112: Negative or not required by law. Electronically signed by: Nish Maxwell M.D. 08/28/2022 9:52 AM Head CTA 08/28/22 09:29 CT angio head w con, CT angio neck with con CLINICAL HISTORY: neuro deficit, acute stroke suspected TECHNIQUE: CT angiography of the head and neck was performed following intraven ous administration of iodinated contrast. Coronal and sagittal MIPS were obtained from the axial data set and were submitted for review. Automated dose lowering techniques and/or adjustment according to patient size were utilized for this examination. All measurements were calculated based on NASCET criteria. CT DOSE: 2330.93 mGy.cm Comparison: None available at the time of this dictation. FINDINGS: Small thyroid nodules are seen which do not require follow-up by ACR criteria. CTA Neck: A 3 vessel aortic arch is shown. There is no significant atherosclerotic plaque in the aortic arch or the origins of the innominate, left common carotid, and left subclavian arteries. The common carotid, external carotid, cervical segments of the internal carotid arteries, and the cervical s egments of the vertebral arteries are patent without hemodynamically significant stenosis. The left vertebral artery is dominant. CTA Head: The anterior and posterior cerebral circulations are patent. No hemodynamically significant stenosis, aneurysm, dissection, or arteriovenous malformation is shown. Of note, the right vertebral artery is hypoplastic and terminates in PICA. IMPRESSION: 1. No occlusion, hemodynamically significant stenosis, or dissection in the major cervical arteries. 2. No occlusion, hemodynamically significant stenosis, aneurysm, dissection, or arteriovenous malformation in the major intracranial arteries. Assessment of stenosis of the internal carotid arteries is based on NASCET criteria. ACT 112: Negative or not required by law. Electronically signed by: Nish Maxwell M.D. 08/28/2022 10:22 AM Neck CTA 08/28/22 09:29 CT angio head w con, CT angio neck with con CLINICAL HISTORY: neuro deficit, acute stroke suspected TECHNIQUE: CT angiography of the head and neck was performed following intravenous administration of iodinated contrast. Coronal and sagittal MIPS were obtained from the axial data set and were submitted for review. Automated dose lowering techniques and/or adjustment according to patient size were utilized for this examination. All measurements were calculated based on NASCET criteria. CT DOSE: 2330.93 mGy.cm Comparison: None available at the time of this dictation. FINDINGS: Small thyroid nodules are seen which do not require follow-up by ACR criteria. CTA Neck: A 3 vessel aortic arch is shown. There is no significant atherosclerotic plaque in the aortic arch or the origins of the innominate, left common carotid, and left subclavian arteries. The common carotid, external carotid, cervical segments of the internal carotid arteries, and the cervical segments of the vertebral arteries are patent without hemodynamically significant stenosis. The left vertebral artery is dominant. CTA Head: The anterior and posterior cerebral circulations are patent. No hemodynamically significant stenosis, aneurysm, dissection, or arteriovenous malformation is shown. Of note, the right vertebral artery is hypoplastic and terminates in PICA. IMPRESSION: 1. No occlusion, hemodynamically significant stenosis, or dissection in the major cervical arteries. 2. No occlusion, hemodynamically significant stenosis, aneurysm, dissection, or arteriovenous malformation in the major intracranial arteries. Assessment of stenosis of the internal carotid arteries is based on NASCET criteria. ACT 112: Negative or not required by law. Electronically signed by: Nish Maxwell M.D. 08/28/2022 10:22 AM Brain MRI 08/28/22 11:04 MR brain wo con CLINICAL HISTORY: shaking/spasm episode, difficulty w/ speech TECHNIQUE: Multiplanar and multisequence MR images of the brain were obtained without intravenous contrast. Comparison: None available at the time of this dictation. FINDINGS: Exam is limited by patient motion. No abnormal restricted diffusion is identified. The white matter is unremarkable. The ventricular system is normal i n appearance. No mass is seen. There is no mass effect or midline shift. There is no evidence of acute intraparenchymal hemorrhage. No extra axial fluid collections are seen. The corpus callosum, pituitary gland, and cerebellar tonsils appear grossly unremarkable. Flow voids of the major intracranial arterial vessels are identified. Sinus mucosal thickening is seen most prominent in the bilateral maxillary paranasal sinuses. IMPRESSION: No acute abnormalities. ACT 112: Negative or not required by law. Electronically signed by: Nish Maxwell M.D. 08/28/2022 12:48 PM ECG Additional Comments: EKG reviewed: sinus tachycardia, possible nonspecific ST changes although poor quality with artifact - repeating now Supervising Physician Co-Signing Physician Notes Patient was seen and examined with Shelby Mart PA-C at bedside in presence of the whole family. Chart reviewed. Case discussed with Shelby CALHOUN and agree with the documentation above with regards to HPI, PE and A/P. In summary, this is a 57 year old male who presented to the ED with multiple complaints as above. Patient was seen by PCP yesterday and was given Tdap and Shingles vaccine. Also started on new meds (gabapentin 300 tid of which he took first dose last night; and lisinopril which he hasn't taken yet). Stroke work up negative with negative CT head, CTA head and neck and MRI brain. All his symptoms had resolved by our encounter. He was AAOx3, neurologically intact although drowsy from the 3 mg ativan and2 gm IV Keppra he got in the ED. Labs, imaging, vitals reviewed- no abnormality noted. Doubt stroke or ACS. Once patient went up to the floor, he was noted to have about 15 sec of similar episode (shaking, clenching extremities) when he was woken for blood draw which resolved immediately once the trigger was removed- this would not be typical of seizure. He does drink alcohol and chew tobacco, does have anxiety. It is possible his symptoms are multifactorial- particularly in light to his recent vaccination, new medication, alcohol intake (last drink yesterday) and anxiety, however family strongly denies he is alcoholic or would have withdrawal symptoms. Per family, he works in the [employer] and suggested checking for lyme which is reasonable. They were also considering transfer to [place] as he would not be seen by neuro tonight. We did discuss the case with Dr Castillo (neuro environmental services assistant)- no emergency identified that patient needs to be seen today- neuro will see the patient in am. We relayed this to family and they were agreeable to the plan of care. Rest as per the note above. On exam- General: Sleeping comfortably in bed, Snoring, not in distress, on room air HEENT: DIRK, MMM Chest: Clear breath sounds bilaterally, no wheezes or crackles CVS: Regular rate and rhythm, normal heart sounds, no murmur Abdomen: Soft, non tender, not distended, normal bowel sounds Neuro: Awake, alert, orientedx3, conversing appropriately, strength intact in all extremities, gross sensation intact and symmetrical, finger nose test normal bilaterally, cranial nerves grossly intact. Gait not checked Extremities: No cyanosis, clubbing or edema
[2022-08-28] MEDS ORDERED: LORazepam 2 MG/1 ML VIAL IV PRN ×2 (11:34→14:42)
--- NOTE | 2022-08-28 12:49 | Magnetic Resonance Report ---
MR brain wo con CLINICAL HISTORY: shaking/spasm episode, difficulty w/ speech TECHNIQUE: Multiplanar and multisequence MR images of the brain were obtained without intravenous con trast. Comparison: None available at the time of this dictation. FINDINGS: Exam is limited by patient motion. No abnormal restricted diffusion is identified. The white matter i s unremarkable. The ventricular system is normal in appearance. No mass is seen. There is no mass eff ect or midline shift. There is no evidence of acute intraparenchymal hemorrhage. No extra axial fluid collections are seen. The corpus callosum, pituitary gland, and cerebellar tonsils appear grossly un remarkable. Flow voids of the major intracranial arterial vessels are identified. Sinus mucosal thickening is see n most prominent in the bilateral maxillary paranasal sinuses. IMPRESSION: No acute abnormalities. ACT 112: Negative or not required by law. Electronically signed by: Nish Maxwell M.D. 08/28/2022 12:48 PM
[2022-08-28] MEDS ORDERED: ASPIRIN CHEW 324 MG PO STA (13:53)
[2022-08-28] MEDS ORDERED: POLYETHYLENE (MIRALAX) 17 GM PACK PO PRN (14:42)
[2022-08-28] MEDS ORDERED: PHARMACIST DISCHARGE MED REC CONSULT PRN (14:42)
[2022-08-28] MEDS ORDERED: ACETAMINOPHEN 325 MG TAB PO PRN (14:42)
[2022-08-28] MEDS ORDERED: CEROVITE ADV FORMULA TAB PO ONE (15:15)
[2022-08-28] MEDS ORDERED: THIAMINE HCL 100 MG, FOLIC ACID 1 MG in SODIUM CHLORIDE 0.9% 1000ML 1,000 ML IV SCH (15:15)
[2022-08-28] MEDS ORDERED: ONDANSETRON INJ 2 MG/ML 2 ML VIAL IV PRN (16:00)
[2022-08-28 17:02] LABS: Troponin I High Sensitivity 7.5 pg/ml (0-20)
[2022-08-28 18:29] LABS: Lyme Ab IgG w/WB Rflx Negative (Negative); Lyme Ab IgM w/WB Rflx Negative (Negative)
[2022-08-28 19:31] LABS: Appearance Urine Clear (Clear); Bilirubin Urine Negative (Negative); Blood Urine Negative (Negative); Color Urine Yellow; Glucose Urine UA Negative (Negative); Ketones Urine Trace (Negative); Leukocyte Esterase Urine Negative (Negative); Nitrite Urine Negative (Negative); Protein Urine Negative (Negative); Specific Gravity Urine > 1.045 (1.000-1.030); Urobilinogen Urine Negative (Negative)
[2022-08-28 20:17] LABS: Amphetamines+Metham, Urine Neg (Neg); Barbiturates, Urine Neg (Neg); Benzodiazepine, Urine Neg (Neg); Cocaine, Urine Neg (Neg); MDMA (Ecstacy), Urine Neg (Neg); Methadone, Urine Neg (Neg); Opiate, Urine Neg (Neg); Phencyclidine, Urine Neg (Neg)
--- NOTE | 2022-08-28 21:17 | XCELERA ---
[id number]
[2022-08-29] MEDS ORDERED: LORazepam 1 mg IV INJ IV STA (06:15)
[2022-08-29] MEDS ORDERED: LORazepam 2 MG/1 ML VIAL ONE (06:16)
[2022-08-29] MEDS ORDERED: levETIRAcetam 1,000 MG in 0.9 % SODIUM CHLORIDE 100 ML IV STA (06:19)
[2022-08-29 06:23] LABS: Hematocrit (blood only) 44.1 % (42.0-52.0); Hemoglobin 14.9 g/dl (14.0-18.0); Mean Corpuscular Hemoglobin 30.1 pg (25.0-34.0); Mean Corpuscular Hgb Conc 33.8 g/dL (32.0-36.0); Mean Corpuscular Volume 89.1 fL (80.0-100.0); Mean Platelet Volume 10.8 fL (9.4-12.4); Platelet Count 174 K/uL (130-400); RDW Coefficient of Variation 13.2 % (11.5-14.5); RDW Standard Deviation 43.2 fL (36.4-46.3); Red Blood Count 4.95 M/uL (4.70-6.10); White Blood Count 8.57 K/ul (4.8-10.8)
--- NOTE | 2022-08-29 06:24 | Communication Note ---
Date of Service: August 29, 2022 6 AM Patient noted to have uncontrolled shaking. Gradual resolution post IV Ativan administration. Patient left side noted to be weak as per RN post episode. BSG 102 Uncontrolled truncal shaking witnessed by myself. No tongue biting. Patient disoriented during episode. Improvement with Ativan administration. AP Possible seizures Seizure precautions Ativan as needed active seizures Keppra for now for seizure prophylaxis Brain MRI (with and without contrast) Await Neuro input
[2022-08-29] MEDS ORDERED: LORazepam 2 MG/1 ML VIAL IV PRN (06:25)
[2022-08-29] MEDS ORDERED: SODIUM CHLORIDE 0.9% 1000ML 1,000 ML IV ONE (06:30)
[2022-08-29 06:46] LABS: Anion Gap 5 (3-11); BUN Creatinine Ratio 16.1 (10-20); Blood Urea Nitrogen 20 mg/dl (6-23); Calcium 8.6 mg/dl (8.6-10.3); Carbon Dioxide 28 mmol/L (21-32); Chloride 108 mmol/L (98-107); Est GFR (African American) 75.4 ml/min; Glucose 102 mg/dl (70-99(Fasting)); Potassium 4.5 mmol/L (3.5-5.1); Sodium 141 mmol/L (136-145)
[2022-08-29] MEDS: FOLIC ACID 1 MG TAB PO SCH (07:46)
[2022-08-29] MEDS: PANTOprazole 40 MG TAB PO SCH (07:46)
[2022-08-29] MEDS: CYANOCOBALAMIN 1000 MCG/ML VIAL IM SCH (07:46)
[2022-08-29] MEDS: HEPARIN SOD 5,000 UNIT/0.5 ML VIAL SQ SCH ×3 (07:47→20:33)
[2022-08-29] MEDS: THIAMINE HCL 100 MG TAB PO SCH (07:47)
--- NOTE | 2022-08-29 09:04 | Neurology Consultation ---
Date of Consultation August 29, 2022 Assessment & Plan (1) Episode of shaking: (2) Episode of change in speech: Plan 57-year-old male with atypical recurrent spells of generalized shaking with intact awareness, ability to converse during episodes, occurring with associated stuttering halting speech. I did witness one of these episodes during my evaluation of the patient. The observed episode would not be consistent with seizure activity given bilateral irregular limb shaking and intact awareness as above. The observed episode is also not consistent with stroke given lack of objective deficits on neurological examination. Patient's unremarkable neuroimaging thus far is encouraging including CT of the head, CT angiography of the head and neck, and brain MRI. The brain MRI evaluation was limited due to motion artifact, however. Nonetheless, no abnormal restricted diffusion or evidence of acute process on any sequences. No objective evidence of stroke or seizure focus. I also note that he is afebrile and does not have a leukocytosis. He does not have nuchal rigidity on examination. Meningoencephalitis unlikely at this time. Furthermore, his urine toxicology screen was negative as was testing for Lyme disease and SARS-CoV-2. It is notable that he did receive 2 vaccinations on Tuesday during a visit with his PCP, reportedly the tetanus and shingles vaccination. He was also given a prescription for gabapentin. It is possible that he could be having an adverse reaction to either of the vaccinations or gabapentin. This patient also endorses significant stress related to his spouses brain tumor for which she frequently gets care at [facility]. It is possible that his presentation could also be in part related to emotional distress. I would recommend checking an EEG as well as a repeat gadolinium-enhanced brain MRI, seizure protocol. Would remain off gabapentin and baclofen for the time being. Continue Keppra 500 mg p.o. twice daily. Continue supportive medical care. Case discussed with patient's nurse at bedside. Patient's spouse planning to come in later this morning, I will return to discuss further. History of Present Illness Reason for Consultation: Strokelike symptoms Requesting Physician: Shelby Mart PA-C Attending Physician: Anastasia Olmos MD History of Present Illness The patient is a 57-year-old male who presented to the emergency department yesterday for further assessment of an episode of shaking and associated speech difficulty that began abruptly at around 8:50 AM. He was noted to have slow stuttering speech, no associated weakness of the limbs. He has had several additional episodes during this hospitalization, 1 of these occurred earlier this morning for which she was treated with lorazepam. Upon my assessment of him he had another similar episode characterized by irregular shaking of the limbs, intact awareness, stuttering, hesitant speech. Patient able to converse with me during the episode, able to follow commands. Denied any headache or dizziness, did complain of some low back pain. At times his speech became clear and fluent, at other times, slow stuttering and hesitant. His breathing and vital signs were normal. Just prior to the episode, we have been discussing some stressors in his life including caring for his , who he states has a brain tumor, neurocytoma, she follows with a specialist frequently at [facility]. He frequently accompanies her for visits. 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 He denies any recent illness or injury but was seen by his PCP on Tuesday and received a tetanus and shingles vaccination as well as a prescription for gabapentin. He has endorsed a history of moderate alcohol consumption and chewing tobacco use. No known prior history of stroke, TIA, or seizures. I note that he was given a loading dose of Keppra during his initial evaluation in the emergency department. I note that he has been afebrile and normotensive, he did have a mildly elevated blood pressure presentation, 148/89, but for the most part normal afterwards. His blood pressure was again elevated slightly earlier this morning, in the context of one of the above episodes, 169/118, followed by 151/110, followed by 132/88. A CBC has been unremarkable although it note a slight elevation in neutrophil count. Coagulation studies normal. Comprehensive metabolic panel unremarkable, normal sodium, normal potassium, normal glucose, magnesium, transaminases. Normal CK and troponins. Prolactin normal as well. Urinalysis is unremarkable as is a urine drug screen, Lyme screening, and SARS-CoV-[address] of the head, CT angiography of the head and neck, and brain MRI are unremarkable as well. I did independently review these images. The CT of the head is negative for hemorrhage or acute process, no hydrocephalus, no subdural collections, there are a few physiologic calcifications within the basal ganglia region, more so on the left. CT angiography of the head and neck unremarkable, no occlusion, hemodynamically si gnificant stenosis, dissection or aneurysm. The right vertebral artery is hypoplastic. The brain MRI is limited by motion artifact although there is no evidence of acute or subacute infarct, no hemorrhage, no acute process or parenchymal disease identified. An echocardiogram completed yesterday did not reveal any significant pathology, normal left ventricular size and wall thickness, EF 60 to 65%, no regional wall motion abnormalities, right ventricle mildly dilated, no significant valvular pathology, left atrial size normal. Injection of contrast did not reveal any shunt. An electrocardiogram reveals sinus tachycardia, ST and T wave abnormality, 122 bpm. Allergies Allergy/AdvReac Type Severity Reaction Status Date / Time codeine AdvReac Unknown gi upsets Verified 09/13/19 12:49 morphine AdvReac Unknown gi upsets Verified 09/13/19 12:49 [id number] Reductase AdvReac Unknown Muscle Pain Verified 09/13/19 12:49 Inhibitor [[id number] Reductase Inhibitor] Home Medications Medication Instructions Recorded Confirmed Type omeprazole 20 mg tablet,delayed 20 mg PO DAILY 03/23/18 08/28/22 History release cetirizine 10 mg tablet (Zyrtec) 10 mg PO QAM PRN Allergic Symptoms 09/05/19 08/28/22 History baclofen 20 mg tablet 20 mg PO HS PRN Muscle Spasm 01/12/21 08/28/22 History gabapentin 300 mg capsule 300 mg PO TID 08/28/22 08/28/22 History lisinopril 20 mg tablet 20 mg PO DAILY 08/28/22 08/28/22 History Patient History Medical History Terrazas esophagus Chronic back pain LUMBAR GERD (gastroesophageal reflux disease) High cholesterol Hyperlipidemia Hypertension Rectal bleeding OCCASIONALLY> REASON FOR PROCEDURE Sleep apnea CPAP Surgical History History of esophagogastroduodenoscopy (EGD) Hx of arthroscopic knee surgery MULTIPLE BILAT Hx of hand surgery INDEX FINGER> LEFT HAND Hx of hernia repair X2> INGUINAL Hx of shoulder surgery LEFT Hx of toe surgery LEFT FOOT Hx of vasectomy Family History Father Hypertension Social History Smoking Status: Current every day smoker Tobacco Type: Smokeless Tobacco (Dip or Chew) Second Hand Exposure: No; Do You Dip or Chew Tobacco: Yes; Hx Alcohol Use: Yes Alcohol type: beer and hard liquor Hx Substance Use: No Preferred Language: [place] Communication Ability: Effective Undercoat Sprayer Required: No Beliefs That Will Affect Care: None marital status: Current Living Situation: Spouse Other Information That Helps Us Care for You: No Feels Safe at Home: Yes Assistive Devices: None Review of Systems Constitutional: no fever and no chills Eyes: no blind spots and no diplopia Ear, Nose, Mouth, Throat: no ear pain and no hearing loss Respiratory: no cough and no dyspnea Cardiovascular: no chest pain and no palpitations Gastrointestinal: no nausea and no vomiting Genitourinary: no dysuria or no urinary incontinence Musculoskeletal: + back pain; no myalgia Integumentary: no rash and no lesions Neurologic: as per Subjective / HPI, + tremor(s), + abnormal movements, + headache(s) and + abnormal speech Psychiatric: + problem reported (Does endorse stress related to his spouse's diagnosis of brain tumor, need for ongoing care at [facility]); no depression and no anxiety Hematologic / Lymphatic: no easy bleeding and no easy bruising Exam (Neuro) Constitutional: well developed and well nourished Eyes: normal visual gomez by confrontation, PERRL and EOM intact bilaterally; no nystagmus and no papilledema Cardiovascular: Vessels: no carotid bruit Neurologic: Oriented to:: Person, Place and Time Memory: Short Term Intact and Remote Intact Attention: Span Intact and Concentration Intact Speech Fluency: Halting and Stuttering (intermittent, distractible) Speech Aphasia: negative Aphasia Fund of Knowledge: Current Events, Past History and Vocabulary Cranial Nerves: Normal II, III, IV, , V, VII, VIII, IX, X, XI and XII Motor Strength: Normal Lower Extremities and Normal Upper Extremities Motor Tone: Normal Lower Extremities and Normal Upper Extremities Rigidity: None Spasticity: None Muscle Bulk/Involuntary Movements: negative No Involuntary Movements (Intermittent irregular appearing tremor for the right upper limb observed which progressed to flexion of both upper limbs, generalized shaking, intact awareness and ability to converse) Sensation: Light Touch Intact, Pain/Temperature Intact, Vibration Intact and Proprioception Intact Coordination: negative Finger-Nose Abnormal or Heel-Gallardo Abnormal Deep Tendon Reflexes: Rt Triceps: 2+, Lt Triceps: 2+, Rt Biceps: 2+, Lt Biceps: 2+, Rt Brachioradialis: 2+, Lt Brachioradialis: 2+, Rt Patellar: 2+, Lt Patellar: 2+, Rt Ankle: 2+ and Lt Ankle: 2+ Details: Gait could not be tested due to safety concerns in this patient. Patient's neck is supple. Results & Data Vital Signs (Past 12 Hours) Vital Signs Temp Pulse Pulse Resp BP BP Pulse Ox 08/29/22 07:00 36.8 C 77 16 132/88 93 08/29/22 06:07 80 21 151/110 H 95 08/29/22 05:47 78 28 H 169/118 H 94 08/29/22 03:49 36.7 C 74 18 132/80 95 08/28/22 22:09 75 08/28/22 23:17 36.8 C 78 19 118/77 92 O2 Del Method 08/29/22 07:00 Room Air 08/29/22 06:07 Room Air 08/29/22 05:47 Room Air 08/29/22 03:49 Room Air 08/28/22 22:09 08/28/22 23:17 Room Air Laboratory Results WBC 8.57, hemoglobin 14.9, hematocrit 44.1, MCV 89.1, platelet count 174, sodium 141, potassium 4.5, BUN 20, creatinine 1.24, glucose 102, calcium 8.6, magnesium 2.0, AST 15, ALT 19, total CK 44, troponin 3.7, prolactin 12.06, urinalysis unremarkable, urine tox screen negative, Lyme screen negative, SARS-CoV-[address] testing [address] Findings CT of the head, CT angiography of the head and neck, brain MRI as described in the history of present illness, I independently reviewed these studies. No abnormalities identified. Echocardiography and ECG as described in the history of present illness. Coding Level of Care Code 27319 INT INP/OBS CARE 3/75MIN Diagnoses Episode of shaking R25.1 Episode of change in speech R47.89
--- NOTE | 2022-08-29 12:22 | Hospitalist Progress Note ---
Date of Service August 29, 2022 Assessment & Plan (1) Episode of shaking: (2) Stroke-like symptoms: (3) Alcohol use: (4) Chest pain: (5) B12 deficiency: (6) Terrazas esophagus: (7) Hyperlipidemia: (8) Chronic back pain: (9) Sleep apnea: Plan 57yo M with a PMH of HTN, HLD, daily tobacco use, DEBBIE on CPAP, Terrazas's esophagus, DDD, chronic lower back pain presenting as a stroke alert. Strokelike symptoms Shaking episode Patient with headache, CP, paresthesias of hands, shaking and periodic word finding difficulty this morning upon waking that have all resolved while in ER Did have PCP visit the day before where he received shingles vaccine for the first time as well as starting gabapentin 300mg (took one dose last evening). He also took some glasses of alcohol then. Work up in ER essentially unremarkable- Vital signs stable CT head, CTA head/neck and brain MRI without any acute abnormalities No leukocytosis, initial troponin negative Received a total of 3mg Ativan in ED as well as Keppra loading dose and is now resting comfortably Repeat MRI brain did not show any abnormalities Possibilities include possible seizure, anxiety related (as reports she is dealing with cancer/tumor diagnosis and he has some stress at work as well), ?drug adverse effect Neurology eval noted Started cymbalta Currently on Keppra. If EEG is normal, will stop per Neuro recs Chest pressure Endorsed upon waking, non-radiating and resolved upon presentation to ER Presentation atypical for ACS, initial ECG with sinus tachycardia and artifact (repeat pending), HS troponin negative Tele shows sinus rhythm Alcohol use Endorses drinking but not nightly. Did drink a couple of glasses the night before Thiamine and folic acid supplementation in AM HLD Elevated lipid profile as outpatient from 08/27/22 (Total chol: 275, LDL 198, HDL 48, TG 145). Intolerant to statin. PCP considering Zetia H/o Barretts esophagus 2019 EGD with e/o inflammatory esophagitis, continue PPI Chronic back pain Currently comfortable. Continue PRN tylenol, Avoid gabapentin as above DVT Ppx: SQ heparin Code status: FULL PCP: Sultana Updated and daughter at bedside I spent a total of 50 minutes coordinating, documenting and providing care for this patient excluding time spent in performance of separately billed services Admission and Anticipated Discharge Date Admission Date: August 28, 2022 Subjective Patient seen and examined Had a possible seizure episode this morning that resolved with ativan Currently reports only chronic low back pain, chronic intermittent medial hand numbness. Denied any headache, dizziness Denies any chest pain, cough, shortness of breath Denies any abdominal pain, diarrhea, nausea vomiting Denies dysarthria, dysphagia, focal weakness Physical Exam Constitutional: + well hydrated; no acute distress Eyes: PERRL, conjunctivae normal, anicteric sclerae ENMT: external ear and nose normal, oropharynx normal Respiratory: normal respiratory effort, lungs clear to auscultation Cardiovascular: Rate/Rhythm: regular rate and regular rhythm S1 S2 Gastrointestinal (Abdomen): normal bowel sounds, soft, nontender, no hepatosplenomegaly Musculoskeletal: no cyanosis or clubbing, extremities motor strength 5/5 Neurologic: PERRL, EOMI, accommodation nl, no face palsy, no dysarthria Psychiatric: A+Ox3, euthymic affect Results & Data Results & Data Vital Signs (Past 12 Hours) Vital Signs Temp Pulse Resp BP BP Pulse Ox O2 Del Method 08/29/22 08:52 Room Air 08/29/22 07:00 36.8 C 77 16 132/88 93 Room Air 08/29/22 06:07 80 21 151/110 H 95 Room Air 08/29/22 05:47 78 28 H 169/118 H 94 Room Air 08/29/22 03:49 36.7 C 74 18 132/80 95 Room Air Laboratory Results Abnormal lab results 08/28/22 08/29/22 08/29/22 Range/Units 18:30 05:37 06:14 Chloride 108 H (98-107) mmol/L Glucose 102 H (70-99(Fasting)) mg/dl POC Glucose 118 H (70-99) mg/dl Ur Specific [place] > 1.045 H (1.000-1.030) Urine Ketones Trace H (Negative)
[2022-08-29] MEDS ORDERED: GADOBUTROL 65ML VIAL IV ONE (12:38)
--- NOTE | 2022-08-29 12:56 | Magnetic Resonance Report ---
MR brain wo/w con CLINICAL HISTORY: sz TECHNIQUE: Multiplanar and multisequence MR images of the brain were obtained prior to and following administration of gadolinium contrast. Comparison: Comparison is made to MRI brain 08/28/2022 FINDINGS: No abnormal restricted diffusion is identified. The white matter is unremarkable. The ventricular sys tem is normal in appearance. No mass or abnormal enhancement is seen. There is no mass effect or midl ine shift. There is no evidence of acute intraparenchymal hemorrhage. No extra axial fluid collection s are seen. The corpus callosum, pituitary gland, and cerebellar tonsils appear grossly unremarkable. Flow voids of the major intracranial arterial vessels are identified. The imaged portions of the para nasal sinuses, mastoid air cells, and orbits are unremarkable. IMPRESSION: No acute abnormalities. ACT 112: Negative or not required by law. Electronically signed by: Nish Maxwell M.D. 08/29/2022 12:54 PM
[2022-08-29] MEDS: DULoxetine HCL 30 MG CAP PO SCH (15:17)
[2022-08-29] MEDS: NICOTINE 21 MG/24 HR TDSY TD SCH (16:46)
[2022-08-29] MEDS: levETIRAcetam 500 MG TAB PO SCH (20:32)
--- NOTE | 2022-08-29 20:43 | Electrocardiogram Report ---
Test Reason : Blood Pressure : / mmHG Vent. Rate : 122 BPM Atrial Rate : 122 BPM P-R Int : 128 ms QRS Dur : 086 ms QT Int : 322 ms P-R-T Axes : 023 050 014 degrees QTc Int : 458 ms Poor data quality, interpretation may be adversely affected Sinus tachycardia Abnormal ECG When compared with ECG of 23-MAR-2018 11:57, Vent. rate has increased BY [address] now depressed in Inferior leads ST now depressed in Anterior leads Confirmed by Brandon Graham ([id number]) on 08/29/2022 8:43:23 PM Referred By: REFERRED SELF Confirmed By:Brandon Graham
[2022-08-29] MEDS ORDERED: lisinopril 10 MG TAB PO SCH (21:00)
[2022-08-30] MEDS: HEPARIN SOD 5,000 UNIT/0.5 ML VIAL SQ SCH (06:13)
--- NOTE | 2022-08-30 07:42 | Electroencephalogram ---
EEG Procedure Note Date of Service August 30, 2022 Start / End Times Start Time: 709 End Time: 729 Referring Physician Shelby Mart PA-C History 57-year-old with seizure-like activity Home Medication List Medication Instructions Recorded Confirmed Type omeprazole 20 mg tablet,delayed 20 mg PO DAILY 03/23/18 08/28/22 History release cetirizine 10 mg tablet (Zyrtec) 10 mg PO QAM PRN Allergic Symptoms 09/05/19 08/28/22 History baclofen 20 mg tablet 20 mg PO HS PRN Muscle Spasm 01/12/21 08/28/22 History gabapentin 300 mg capsule 300 mg PO TID 08/28/22 08/28/22 History lisinopril 20 mg tablet 20 mg PO DAILY 08/28/22 08/28/22 History Inpatient Medication List Cyanocobalamin (Cyanocobalamin 1000 Mcg/Ml Vial) 1,000 mcg IM QAM [facility] Stop: 09/28/22 08:59 Last Admin: 08/29/22 07:46 Dose: 1,000 mcg Documented By: AMENA Duloxetine HCl (Duloxetine Hcl 30 Mg Cap) 30 mg PO QAM [facility] Stop: 09/28/22 13:14 Last Admin: 08/29/22 15:17 Dose: 30 mg Documented By: AMENA Folic Acid (Folic Acid 1 Mg Tab) 1 mg PO QAM [facility] Stop: 09/28/22 08:59 Last Admin: 08/29/22 07:46 Dose: 1 mg Documented By: AMENA Heparin Sodium (Porcine) (Heparin Sod 5,000 Unit/0.5 Ml Vial) 5,000 units SQ Q8 [facility] Stop: 09/28/22 08:59 Last Admin: 08/30/22 06:13 Dose: 5,000 units Documented By: Admin: 08/29/22 20:33 Dose: 5,000 units Documented By: Admin: 08/29/22 15:18 Dose: 5,000 units Documented By: Admin: 08/29/22 07:47 Dose: 5,000 units Documented By: AMENA Levetiracetam (Levetiracetam 500 Mg Tab) 500 mg PO BID [facility] Stop: 09/28/22 20:59 Last Admin: 08/29/22 20:32 Dose: 500 mg Documented By: DOMINGO Lisinopril (Lisinopril 10 Mg Tab) 10 mg PO HS [facility] Stop: 09/28/22 20:59 Last Admin: 08/29/22 20:33 Dose: 10 mg Documented By: DOMINGO Nicotine (Nicotine 21 Mg/24 Hr Tdsy) 21 mg TD QAM [facility] Stop: 09/28/22 16:14 Last Admin: 08/29/22 16:46 Dose: Not Given Documented By: AMENA Pantoprazole Sodium (Pantoprazole 40 Mg Tab) 40 mg PO DAILY [facility] Stop: 09/28/22 08:59 Last Admin: 08/29/22 07:46 Dose: 40 mg Documented By: AMENA Thiamine HCl (Thiamine Hcl 100 Mg Tab) 100 mg PO QAM [facility] Stop: 09/28/22 08:59 Last Admin: 08/29/22 07:47 Dose: 100 mg Documented By: AMENA Discontinued Medications Acetaminophen (Acetaminophen 1000 Mg/100 Ml Iv) 1,000 mg IV NOW STA Stop: 08/28/22 10:21 Last Admin: 08/28/22 10:23 Dose: 1,000 mg Documented By: SADAF Aspirin (Aspirin Chew 324 Mg) 324 mg PO NOW STA Stop: 08/28/22 13:54 Last Admin: 08/28/22 13:56 Dose: 324 mg Documented By: AR Gadobutrol (Gadobutrol 65ml Vial) 10 ml IV ONCE ONE Stop: 08/29/22 12:39 Last Admin: 08/29/22 12:39 Dose: 10 ml Documented By: MILLICENT Levetiracetam 2,250 mg/ Sodium (Chloride) 272.5 mls @ 999 mls/hr IV NOW STA Stop: 08/28/22 10:11 Last Infusion: 08/28/22 10:58 Dose: 0 mls/hr Documented By: Admin: 08/28/22 10:40 Dose: 999 mls/hr Documented By: ASDAF Sodium Chloride (Nss 1000ml) 1,000 mls @ 999 mls/hr IV .Q1H1M ONE Stop: 08/28/22 10:58 Last Infusion: 08/28/22 11:23 Dose: 0 mls/hr Documented By: Admin: 08/28/22 10:02 Dose: 999 mls/hr Documented By: SADAF Magnesium Sulfate/Dextrose (Magnesium Sulfate / D5w) 1 gm in 100 mls @ 100 mls/hr IV NOW ONE Stop: 08/28/22 11:19 Last Infusion: 08/28/22 11:21 Dose: 0 mls/hr Documented By: Admin: 08/28/22 10:23 Dose: 100 mls/hr Documented By: SADAF Calcium Gluconate () 1,000 mg in 60 mls @ 240 mls/hr IV NOW STA Stop: 08/28/22 10:50 Last Infusion: 08/28/22 11:22 Dose: 0 mls/hr Documented By: Admin: 08/28/22 10:48 Dose: 240 mls/hr Documented By: SADAF Thiamine HCl 100 mg/ Folic (Acid 1 mg/ Sodium Chloride) 1,001.2 mls @ 500 mls/hr IV .Q2H1M [facility]; Protocol Stop: 08/28/22 17:15 Last Infusion: 08/28/22 18:35 Dose: 0 mls/hr Documented By: Admin: 08/28/22 16:27 Dose: 500 mls/hr Documented By: AMENA Levetiracetam 1,000 mg/ Sodium (Chloride) 110 mls @ 440 mls/hr IV NOW STA Stop: 08/29/22 06:33 Last Infusion: 08/29/22 08:47 Dose: 0 mls/hr Documented By: Admin: 08/29/22 06:36 Dose: 440 mls/hr Documented By: DOMINGO Sodium Chloride (Nss 1000ml) 1,000 mls @ 60 mls/hr IV .[id number] ONE Stop: 08/29/22 23:09 Last Infusion: 08/29/22 18:51 Dose: 0 mls/hr Documented By: Admin: 08/29/22 06:53 Dose: 60 mls/hr Documented By: AMENA Ioversol (Optiray 320 500ml) 117 ml IV ONCE ONE Stop: 08/28/22 09:37 Last Admin: 08/28/22 16:46 Dose: Not Given Documented By: AMENA Ioversol (Optiray 320 500ml) 117 ml IV ONCE ONE Stop: 08/28/22 09:57 Last Admin: 08/28/22 09:56 Dose: 117 ml Documented By: DEMAR Lorazepam (Lorazepam 2 Mg/1 Ml Vial) 1 mg IV NOW STA Stop: 08/28/22 09:56 Last Admin: 08/28/22 10:02 Dose: 1 mg Documented By: SADAF Lorazepam (Lorazepam 2 Mg/1 Ml Vial) 2 mg IV NOW STA Stop: 08/28/22 10:36 Last Admin: 08/28/22 10:40 Dose: 2 mg Documented By: SADAF Lorazepam (Lorazepam 2 Mg/1 Ml Vial) 1 mg IV Q8H PRN PRN Reason: Anxiety/Agitation Stop: 09/27/22 11:33 Last Admin: 08/28/22 12:06 Dose: 1 mg Documented By: AR Lorazepam (Lorazepam 2 Mg/1 Ml Vial) 1 mg IV ONE PRN; Protocol PRN Reason: EtoH Withdrawal AWSS 6,7,8,9,10 Last Admin: 08/29/22 05:57 Dose: 1 mg Documented By: DOMINGO Lorazepam (Lorazepam 1 Mg Iv Inj) 1 mg IV NOW STA Stop: 08/29/22 06:16 Last Admin: 08/29/22 06:26 Dose: Not Given Documented By: DOMINGO Lorazepam (Lorazepam 2 Mg/1 Ml Vial) Confirm Administered Dose 2 mg .ROUTE .STK- MED ONE Stop: 08/29/22 06:17 Last Admin: 08/29/22 06:24 Dose: 2 mg Documented By: DOMINGO Multivitamins/Minerals (Cerovite Adv Formula Tab) 1 tab PO ONE ONE Stop: 08/28/22 15:16 Last Admin: 08/28/22 16:32 Dose: Not Given Documented By: AMENA Ondansetron HCl (Ondansetron Inj 2 Mg/Ml 2 Ml Vial) 4 mg IV NOW STA Stop: 08/28/22 10:21 Last Admin: 08/28/22 10:23 Dose: 4 mg Documented By: SADAF Description This is a 21 electrode EEG with a single channel dedicated to limited EKG. The electrodes were placed in accordance with the International 10-20 system. Interpretation The predominant background activity consists of a very well modulated 10 Hz activity, of up to 40 mV in amplitude,seen symmetrically distributed over the posterior head regions bilaterally. This activity attenuates nicely with eye- opening and other alerting procedures. Photic stimulation was performed and elicited no change in the background activity and no abnormal responses were seen. Hyperventilation was not performed. A minimal amount of muscle and movement artifact activity contaminated the recording and did not hinder interpretation to any significant degree. Throughout the waking portion of the recording, no focal abnormalities, abnormal slow activity, or potentially epileptogenic discharges are seen. The patient entered the drowsy state and brief periods of stage II sleep with no further activation. In summary, this EEG was normal during wakefulness and sleep. No focal abnormalities, potentially epileptogenic discharges, or abnormal slow activity was seen. Clinical Correlation The abscence of potentially epileptogenic activity does not exclude a seizure disorder, since interictally, EEGs can be normal. Clinical correlation is required. [facility] Procedure Codes Indication for Procedure (1) Seizure-like activity: Neurology Neurology: 18707 EEG include record awake & sleepy
[2022-08-30 08:05] LABS: Hematocrit (blood only) 45.4 % (42.0-52.0); Hemoglobin 15.7 g/dl (14.0-18.0); Mean Corpuscular Hemoglobin 30.1 pg (25.0-34.0); Mean Corpuscular Hgb Conc 34.6 g/dL (32.0-36.0); Mean Corpuscular Volume 87.1 fL (80.0-100.0); Mean Platelet Volume 10.5 fL (9.4-12.4); Platelet Count 194 K/uL (130-400); RDW Coefficient of Variation 12.9 % (11.5-14.5); RDW Standard Deviation 41.1 fL (36.4-46.3); Red Blood Count 5.21 M/uL (4.70-6.10)
[2022-08-30] MEDS: DULoxetine HCL 30 MG CAP PO SCH (08:13)
[2022-08-30] MEDS: levETIRAcetam 500 MG TAB PO SCH (08:14)
[2022-08-30] MEDS: FOLIC ACID 1 MG TAB PO SCH (08:15)
[2022-08-30] MEDS: PANTOprazole 40 MG TAB PO SCH (08:16)
[2022-08-30] MEDS: THIAMINE HCL 100 MG TAB PO SCH (08:16)
[2022-08-30] MEDS: NICOTINE 21 MG/24 HR TDSY TD SCH (08:17)
[2022-08-30] MEDS: CYANOCOBALAMIN 1000 MCG/ML VIAL IM SCH ×2 (08:17→08:18)
[2022-08-30 08:23] LABS: Anion Gap 6 (3-11); BUN Creatinine Ratio 12.3 (10-20); Blood Urea Nitrogen 15 mg/dl (6-23); Calcium 8.8 mg/dl (8.6-10.3); Carbon Dioxide 27 mmol/L (21-32); Chloride 106 mmol/L (98-107); Est GFR (African American) 76.9 ml/min; Est GFR (Non-African American) 66.3 ml/min; Glucose 109 mg/dl (70-99(Fasting)); Phosphorus 3.3 mg/dl (2.5-4.9); Sodium 139 mmol/L (136-145)
[2022-08-30] MEDS ORDERED: STROKE PATIENT DISCHARGE STA (12:52)
--- NOTE | 2022-08-30 12:53 | Discharge Summary ---
Date of Service August 30, 2022 Admission HPI Per Admitting Provider This is a 57yo M with a PMH of HTN, HLD, daily tobacco use, DEBBIE on CPAP, Terrazas's esophagus, DDD, chronic lower back pain presenting as a stroke alert. Was seen by PCP yesterday and received tetanus vaccine as well as shingles. Of note, it was the first time receiving his shingles vaccine. Was also started on gabapentin 300 mg 3 times daily for worsening chronic lower back pain, and patient took one 300 mg dose last evening. Woke up this morning later than normal time with headache, generalized weakness, tingling in bilateral hands, central chest pressure and feeling anxious. Patient was able to get out of bed independently but helped him down the stairs due to generalized weakness that felt the same in both legs. Had an episode of clenching his upper body with shaking, per family at bedside. His [id number]-[id number] took his blood pressure at that time and it was notably high at 240/140, although she admits he was clenching and "worked up". Patient had trouble responding verbally during this time so EMS was called. Upon arrival, chest pain resolved and patient was able to communicate and follow commands appropriately, per ER sign-out. Stroke had been initiated in the field and patient underwent CT head, CTA of head and neck. Telestroke was initiated with Hanna but unable to be fully completed due to audio issues with the cart. However, telemetry neurologist did not see any concerning findings that would require intervention at this time. ER physician gave a total of 3 mg of IV Ativan as well as a loading Keppra 20 mg/kg dose due to concern for possible seizure. At our time evaluation, patient resting comfortably and awakens to answer questions appropriately. VSS. Denies any pain at this time. No paresthesias, headache or generalized weakness. No fever, chills, lightheadedness, chest pain, shortness of breath, nausea, vomiting, abdominal pain, dysuria, diarrhea or constipation. Chews tobacco daily. Endorses drinking alcohol 3-4 times per night, most recently drinking vodka last night. Discussed findings and plan for admission extensively with multiple family members at bedside. They communicated request for [facility] neurology to evaluate and consult was placed. Admission Exam Per Admitting Provider General: Sleeping comfortably in bed, Snoring, not in distress, on room air HEENT: DIRK, MMM Chest: Clear breath sounds bilaterally, no wheezes or crackles CVS: Regular rate and rhythm, normal heart sounds, no murmur Abdomen: Soft, non tender, not distended, normal bowel sounds Neuro: Awake, alert, orientedx3, conversing appropriately, strength intact in all extremities, gross sensation intact and symmetrical, finger nose test normal bilaterally, cranial nerves grossly intact. Gait not checked Extremities: No cyanosis, clubbing or edema Principal Diagnosis Shaking episodes Possible adverse drug reaction Hypertension Discharge Exam Constitutional + well hydrated; no acute distress Eyes PERRL, conjunctivae normal, anicteric sclerae ENMT external ear and nose normal, oropharynx normal Respiratory normal respiratory effort, lungs clear to auscultation Cardiovascular Rate/Rhythm: regular rate and regular rhythm S1 S2 Gastrointestinal (Abdomen) normal bowel sounds, soft, nontender, no hepatosplenomegaly Musculoskeletal no cyanosis or clubbing, extremities motor strength 5/5 Neurologic PERRL, EOMI, accommodation nl, no face palsy, no dysarthria Psychiatric A+Ox3, euthymic affect Discharge Data Allergies Allergy/AdvReac Type Severity Reaction Status Date / Time codeine AdvReac Unknown gi upsets Verified 09/13/19 12:49 morphine AdvReac Unknown gi upsets Verified 09/13/19 12:49 Trmlsxb-GUX-PmY Reductase AdvReac Unknown Muscle Pain Verified 09/13/19 12:49 Inhibitor [Mwycobw-Ytq-Neb Reductase Inhibitor] Consultations 08/28/22 11:18 ED Decision to Admit Stat 08/28/22 13:37 Consult Neurology Routine Ordered Studies 08/28/22 09:29 CT angio head w con Stat CT angio neck with con Stat CT head/brain wo con Stat 08/28/22 11:04 MR brain wo con Stat 08/29/22 06:26 MR brain wo/w con Routine Hospital Course (1) Episode of shaking: (2) Stroke-like symptoms: (3) Alcohol use: (4) Chest pain: (5) B12 deficiency: (6) Terrazas esophagus: (7) Hyperlipidemia: (8) Chronic back pain: (9) Sleep apnea: Plan 57yo M with a PMH of HTN, HLD, daily tobacco use, DEBBIE on CPAP, Terrazas's esophagus, DDD, chronic lower back pain presenting as a stroke alert. Shaking episode Patient presented with headache, CP, paresthesias of hands, shaking and periodic word finding difficulty this morning upon waking that have all resolved while in ER Did have PCP visit the day before where he received shingles vaccine for the first time as well as starting gabapentin 300mg (took one dose last evening). He also took some glasses of alcohol then. Work up in ER essentially unremarkable- Vital signs stable CT head, CTA head/neck and brain MRI without any acute abnormalities No leukocytosis, initial troponin negative Received a total of 3mg Ativan in ED as well as Keppra loading dose Repeat MRI brain did not show any abnormalities Neurology evaluated EEG was normal. Keppra discontinued per Neuro recs Patient was started on trial of cymbalta per neuro recs. However, patient stated he felt flush in the face after taking it. Possibilities include anxiety related (as reports she is dealing with cancer/tumor diagnosis and he has some stress at work as well), drug adverse effect Chest pressure Endorsed upon waking, non-radiating and resolved upon presentation to ER Presentation atypical for ACS, initial ECG with sinus tachycardia and artifact (repeat pending), HS troponin negative Tele showed sinus rhythm TTE noted normal LV, EF 60-65, no significant valvular pathology, borderline pulm HTN PASP 35-40, normal est CVP Alcohol use Endorses drinking but not nightly. Did drink a couple of glasses the night before. Counseled about this Thiamine and folic acid supplementation in AM HLD Elevated lipid profile as outpatient from 08/27/22 (Total chol: 275, LDL 198, HDL 48, TG 145). Intolerant to statin. PCP considering Zetia H/o Barretts esophagus 2019 EGD with e/o inflammatory esophagitis, continue PPI Chronic back pain Currently comfortable. Continue PRN tylenol, Avoid gabapentin as above Total Time Total Time Spent Total Time Spent (In Minutes): 40 Total Time Includes: Examination of the Patient, Discharge Planning and Medication Reconciliation Discharge Plan Discharge Items Patient Disposition: Home - Self-Care Reason For Visit: STROKELIKE SYMPTOMS Discharge Diagnosis: Shaking episodes Possible adverse drug reaction Activity: Resume your previous activity Non-emergency contact: Primary Care Provider Call non-emergency contact if: you have any medication questions Follow-up/Referrals: Stephanie Weinberg MD [Primary Care Provider] - (Date & Time 09/03/2022 11:20 AM Provider Stephanie Weinberg MD Department Family Medicine [facility] Diet: Heart Healthy Addtl Attending Provider Instructions: Mr Marcial. You were brought to the hospital after an episode of shaking, chest pressure and other symptoms. You were extensively evaluated. Please avoid gabapentin for now Continue your lisinopril and other home medications Please monitor blood pressure at home as we discussed and follow up with your Primary Doctor. It was a pleasure taking care of you. Pending Studies at Discharge: No Stand-Alone Forms: My [facility], Work/School Release, Smoking Cessation Medications and DC Order Prescriptions: Continued omeprazole 20 mg Tablet,Delayed Release (Dr/Ec) 20 mg PO DAILY cetirizine [Zyrtec] 10 mg Tablet 10 mg PO QAM PRN (Reason: Allergic Symptoms) baclofen 20 mg tablet 20 mg PO HS PRN (Reason: Muscle Spasm) lisinopril 20 mg tablet 20 mg PO DAILY Discontinued gabapentin 300 mg capsule 300 mg PO TID Discharge Orders: Discharge Order (Routine); Ordered 08/30/22 Ordered By: Anastasia Olmos Admission Data Admit Date/Time: 08/28/22 13:30 Attending Provider: Anastasia Olmos I. Admit Provider: [employer] Primary Care Provider: Stephanie Weinberg Other Providers: [employer] Smart ; Crow Campos ; Nasrin Antoine Other Interventions: Discharge Summary Assessment (RN) Last Done: 08/30/22 12:43
== END 2022-08-30 13:35 | disposition home or self-care (01) ==
LOC: ED 09:26 → 2E 09:26 → SUATTDRO 13:30 → 2E 14:31